=== PATIENT | female | born 1945 | race Caucasian/White ===

== ENCOUNTER 2016-05-23 09:32 | Inpatient (IN) | payer MEDICARE, OTHER ==
[2016-05-23] MEDS ORDERED: Sodium Chloride 0.9% 10 ML Syringe FLUSH PRN (09:45)
[2016-05-23] MEDS ORDERED: HYDROmorphone 0.5 MG/0.5 ML Syringe IVPUSH ONE ×2 (09:48→11:00)
[2016-05-23] MEDS: Sodium Chloride 0.9% 1,000 ML IV SCH ×2 (09:50→18:33)
--- NOTE | 2016-05-23 10:49 | EDM.PDOC ---
ED HPI Trauma - General Chief Complaint: Lower Extremity Injury/Pain Stated Complaint: [facility] Time Seen by Provider: 05/23/16 09:44 Source: Reports: Patient, EMS, Family History Limitations: Reports: Altered mental status - History of Present Illness INITIAL COMMENTS - FREE TEXT/NARRATIVE: The patient presents with right hip pain. She has a history of dementia and parkinsons. This morning she was in the bathroom and her heard her fall. He found her on her right side on the bathroom floor. She was complaining of pain to her right hip. He carried her back to their bed and called 911. She did not hit her head or hurt her neck. She is not on any blood thinners. She last ate about 8am. It was toast and half of a fabiola roll. Occurred When: just prior to arrival Occurred Where: home Method of Injury: fall Severity: severe Pain/Injury Location: Reports: lower extremity, right (Hip) Consciousness: Reports: no loss of consciousness Associated Symptoms: Reports: no other symptoms Allergies/ADRs: Allergies No Known Allergies Allergy (Verified 05/23/16 09:42) Home Medications: Ambulatory Orders LORazepam 0.5 mg PO QID PRN 02/22/14 [Confirmed 05/23/16] Benztropine [Cogentin] 0.5 mg PO ASDIRECTED 05/23/16 [Confirmed 05/23/16] Carbidopa/Levodopa [Sinemet 25-100 mg Tablet] 1 tab PO QID 05/23/16 [Confirmed 05/23/16] Levothyroxine [Synthroid] 50 mcg PO ACBREAKFAST 05/23/16 [Confirmed 05/23/16] Multivitamin [Multivitamins] 1 each PO DAILY 05/23/16 [Confirmed 05/23/16] rOPINIRole HCl [Requip] 0.25 mg PO BID 05/23/16 [Confirmed 05/23/16] Past Medical History - Past Health History Medical/Surgical History: Denies Medical/Surgical History HEENT History: Reports: Impaired vision Cardiovascular History: Reports: High cholesterol, Hypertension Neurological History: Reports: Parkinson's Psychiatric History: Reports: Dementia Endocrine/Metabolic History: Reports: Hypothyroidism - Past Surgical History Cardiovascular Surgical History: Reports: None Endocrine Surgical History: Reports: None Neurological Surgical History: Reports: None Social & Family History - Tobacco Use Smoking Status *Q: Never Smoker Years of Tobacco use: 5 Used Tobacco, but Quit: Yes Month Tobacco Last Used: numerous years ago Second Hand Smoke Exposure: No - Caffeine Use Caffeine Use: Reports: None - Alcohol Use Days Per Week of Alcohol Use: 0 - Recreational Drug Use Recreational Drug Use: No Review of Systems - Review of Systems Review Of Systems: See Below Constitutional: Reports: no symptoms Eyes: Reports: no symptoms Ears: Reports: no symptoms Nose: Reports: no symptoms Mouth/Throat: Reports: no symptoms Respiratory: Reports: no symptoms Cardiovascular: Reports: no symptoms GI/Abdominal: Reports: No symptoms Genitourinary: Reports: no symptoms Musculoskeletal: Reports: leg pain (Right hip pain) Trauma Exam - Physical Exam Exam: See Below Exam Limited By: Altered mental status (She is slightly confused) General Appearance: Reports: alert, no apparent distress Head: Reports: atraumatic, normocephalic Ears: Reports: normal external exam Nose: Reports: normal inspection Neck: Reports: non-tender, normal alignment, normal inspection Respiratory Exam: Reports: no respiratory distress, lungs clear, normal breath sounds Cardiovascular: Reports: regular rate, rhythm, no edema, no murmur GI/Abdominal: Reports: soft, non tender, no organomegaly Extremities: Reports: other (Moderate pain upon palpation to the right hip) Neurologic: Reports: no motor/sensory deficits, alert, other (Slightly confused) Course - Vital Signs Last Recorded V/S: Last Vital Signs Temp 98.7 F 05/23/16 09:37 Pulse 71 05/23/16 09:37 Resp 18 05/23/16 09:37 BP 134/106 H 05/23/16 09:37 Pulse Ox 100 05/23/16 09:37 - Orders/Labs/Meds Orders: Active Orders 24 hr Category Date Time Status Cardiac Monitoring [RC] . DIRECTED Care 05/23/16 09:45 Active EKG 12 Lead [EKG Documentation Completion] [RC] STAT Care 05/23/16 10:54 Active Peripheral IV Care [RC] . DIRECTED Care 05/23/16 09:45 Active CXR [Chest 1V Frontal] [CR] Stat Exams 05/23/16 10:55 Ordered Hip Min 2V or 3V Rt [CR] Stat Exams 05/23/16 09:44 Taken Pelvis 1V or 2V [CR] Stat Exams 05/23/16 10:56 Ordered UA W/MICROSCOPIC [URIN] Stat Lab 05/23/16 10:58 Received Sodium Chloride 0.9% [Normal Saline] 1,000 ml Med 05/23/16 09:45 Active IV ASDIRECTED Sodium Chloride 0.9% [Saline Flush] Med 05/23/16 09:45 Active 10 ml FLUSH ASDIRECTED PRN Peripheral IV Insertion Adult [OM.PC] Stat Oth 05/23/16 09:45 Ordered Medication Orders Sodium Chloride (Normal Saline) 1,000 mls @ 125 mls/hr IV ASDIRECTED LU Last Admin: 05/23/16 09:50 Dose: 125 mls/hr Sodium Chloride (Saline Flush) 10 ml FLUSH ASDIRECTED PRN PRN Reason: Keep Vein Open Last Admin: 05/23/16 09:52 Dose: 10 ml Labs: Laboratory Tests 05/23/16 05/23/16 Range/Units 10:26 10:26 WBC 5.62 (3.98-10.04) K/mm3 RBC 3.75 L (3.98-5.22) M/mm3 Hgb 11.6 (11.2-15.7) gm/L Hct 35.6 (34.1-44.9) % MCV 94.9 H (79.4-94.8) fl MCH 30.9 (25.6-32.2) pg MCHC 32.6 (32.2-35.5) g/dl RDW Std Deviation 48.9 H (36.4-46.3) fL Plt Count 228 (182-369) K/mm3 MPV 9.6 (9.4-12.3) fl Neut % (Auto) 70.6 (34.0-71.1) % Lymph % (Auto) 19.4 (19.3-51.7) % [place] % (Auto) 8.7 (4.7-12.5) % Eos % (Auto) 0.7 (0.7-5.8) Baso % (Auto) 0.4 (0.1-1.2) % Neut # 3.97 (1.56-6.13) K/mm3 Lymph # 1.09 L (1.18-3.74) K/mm3 [place] # 0.49 H (0.24-0.36) K/mm3 Eos # 0.04 (0.04-0.36) K/mm3 Baso # 0.02 (0.01-0.08) K/mm3 Sodium 141 (136-145) mEq/L Potassium 4.1 (3.5-5.1) mEq/L Chloride 105 (98-107) mEq/L Carbon Dioxide 27 (21-32) mEq/L Anion Gap 13.1 (5-15) BUN 44 H (7-18) mg/dL Creatinine 1.5 H (0.55-1.02) mg/dL Est Cr Clr Drug Dosing 21.36 mL/min Estimated GFR (MDRD) 34 (>60) mL/min BUN/Creatinine Ratio 29.3 H (14-18) Glucose 89 (83-115) mg/dL Calcium 9.1 (8.5-10.1) mg/dL Total Bilirubin 0.5 (0.2-1.0) mg/dL AST 16 (15-37) U/L ALT 9 L (14-59) U/L Alkaline Phosphatase 50 (46-116) U/L Troponin I < 0.017 (0.00-0.056) ng/mL Total Protein 7.0 (6.4-8.2) g/dl Albumin 3.8 (3.4-5.0) g/dl Globulin 3.2 gm/dL Albumin/Globulin Ratio 1.2 (1-2) Meds: Medications Generic Name Dose Route Start Last Admin Trade Name Freq PRN Reason Stop Dose Admin Sodium Chloride 1,000 mls @ 125 mls/hr 05/23/16 09:45 05/23/16 09:50 Normal Saline IV 125 mls/hr ASDIRECTED LU Administration Sodium Chloride 10 ml 05/23/16 09:45 05/23/16 09:52 Saline Flush FLUSH 10 ml ASDIRECTED PRN Administration Keep Vein Open Discontinued Medications Generic Name Dose Route Start Last Admin Trade Name Freq PRN Reason Stop Dose Admin Hydromorphone HCl 0.5 mg 05/23/16 09:48 05/23/16 09:51 Dilaudid IVPUSH 05/23/16 09:49 0.5 mg ONETIME ONE Administration Hydromorphone HCl 0.5 mg 05/23/16 11:00 05/23/16 11:04 Dilaudid IVPUSH 05/23/16 11:01 0.5 mg ONETIME ONE Administration - Re-Assessments/Exams Free Text/Narrative Re-Assessment/Exam: 05/23/16 11:14 I ordered an IV NS at 125mL/hr, dilaudid 0.5mg IV, labs and an x-ray of her hip. The x-ray shows an intertrochanteric fracture of the right hip. Her CBC looks good. Her creatinine was elevated at 1.5. Her troponin is negative. I called Dr Hong and he agreed to the admission with Dr Graham on consult. Departure - Departure Time of Disposition: 11:20 Disposition: Admitted As Inpatient 64 Condition: fair Clinical Impression: Intertrochanteric fracture, hip Fall Qualifiers: Encounter type: initial encounter Qualified Code(s): W19.XXXA - Unspecified fall, initial encounter Forms: ED Department Discharge - My Orders Last 24 Hours: My Active Orders 05/23/16 09:44 Hip Min 2V or 3V Rt [CR] Stat 05/23/16 09:45 Cardiac Monitoring [RC] . DIRECTED Peripheral IV Care [RC] . DIRECTED Sodium Chloride 0.9% [Normal Saline] 1,000 ml IV ASDIRECTED Sodium Chloride 0.9% [Saline Flush] 10 ml FLUSH ASDIRECTED PRN Peripheral IV Insertion Adult [OM.PC] Stat 05/23/16 10:54 EKG 12 Lead [EKG Documentation Completion] [RC] STAT 05/23/16 10:55 CXR [Chest 1V Frontal] [CR] Stat 05/23/16 10:56 Pelvis 1V or 2V [CR] Stat 05/23/16 10:58 UA W/MICROSCOPIC [URIN] Stat - Assessment/Plan Last 24 Hours: My Active Orders 05/23/16 09:44 Hip Min 2V or 3V Rt [CR] Stat 05/23/16 09:45 Cardiac Monitoring [RC] . DIRECTED Peripheral IV Care [RC] . DIRECTED Sodium Chloride 0.9% [Normal Saline] 1,000 ml IV ASDIRECTED Sodium Chloride 0.9% [Saline Flush] 10 ml FLUSH ASDIRECTED PRN Peripheral IV Insertion Adult [OM.PC] Stat 05/23/16 10:54 EKG 12 Lead [EKG Documentation Completion] [RC] STAT 05/23/16 10:55 CXR [Chest 1V Frontal] [CR] Stat 05/23/16 10:56 Pelvis 1V or 2V [CR] Stat 05/23/16 10:58 UA W/MICROSCOPIC [URIN] Stat
--- NOTE | 2016-05-23 12:19 | CR ---
Right hip: AP and lateral views of the right hip were obtained. Comparison: No previous hip exam. Fracture is identified within the basicervical or upper intertrochanteric region. Joint space within the right hip is maintained. Degenerative change is partially visualized within the lumbar spine. No other acute abnormality is seen. Impression: 1. Right hip fracture as described above. Other incidental findings. Diagnostic code #3
--- NOTE | 2016-05-23 13:27 | PCM.HP ---
H&P History of Present Illness - General Date of Service: 05/23/16 Admit Problem/Dx: Admission Diagnosis/Problem Admission Diagnosis/Problem Fall Source of Information: Patient, Family, Old records, Provider, RN notes reviewed History Limitations: Reports: Altered mental status (Dementia and Parkinson's Disease), Physical impairment - History of Present Illness Initial Comments - Free Text/Narative: This is a 70 yo elderly white female with past medical hx/o Impaired Vision, HTN , HLD, Parkinson's Disease, Dementia and Hypothyroidism who comes in with c/o right hip pain status fall this morning on her way to the bathroom. Patient was found by on her right side in the bathroom floor. Patient is not on any blood thinners. She report not head or neck pain. Initial work work in ED shows unremarkable CBC. Her chemistry is remarkable for BUN 44 and Cr. 1.5. Her troponin is <0.017. EKG shows Sinus Rhythm. UA was negative for UTI. Hip XR shows right inter-trochanteric fracture. Dr. Graham was consulted in ED for further evaluation. Patient will be admitted under the Hospitalist Team Services. She is DNR/DNI. Right Hip Pain Score (Numeric/FACES): 6 - Related Data Allergies/Adverse Reactions: Allergies Allergy/AdvReac Type Severity Reaction Status Date / Time No Known Allergies Allergy Verified 05/23/16 09:42 Home Medications: Home Meds LORazepam 0.5 mg PO QID PRN 02/22/14 [History] Benztropine [Cogentin] 0.5 mg PO ASDIRECTED 05/23/16 [History] Carbidopa/Levodopa [Sinemet 25-100 mg Tablet] 1 tab PO QID 05/23/16 [History] Levothyroxine [Synthroid] 50 mcg PO ACBREAKFAST 05/23/16 [History] Multivitamin [Multivitamins] 1 each PO DAILY 05/23/16 [History] rOPINIRole HCl [Requip] 0.25 mg PO BID 05/23/16 [History] Past Medical History - Past Health History Medical/Surgical History: Denies Medical/Surgical History HEENT History: Reports: Impaired vision Cardiovascular History: Reports: High cholesterol, Hypertension Neurological History: Reports: Parkinson's Psychiatric History: Reports: Dementia Endocrine/Metabolic History: Reports: Hypothyroidism - Past Surgical History Cardiovascular Surgical History: Reports: None Endocrine Surgical History: Reports: None Neurological Surgical History: Reports: None Social & Family History - Tobacco Use Smoking Status *Q: Never Smoker Years of Tobacco use: 5 Used Tobacco, but Quit: Yes Month Tobacco Last Used: numerous years ago Second Hand Smoke Exposure: No - Caffeine Use Caffeine Use: Reports: None - Alcohol Use Days Per Week of Alcohol Use: 0 - Recreational Drug Use Recreational Drug Use: No H&P Review of Systems - Review of Systems: Review Of Systems: See Below General: Denies: fever, chills HEENT: Reports: no symptoms Pulmonary: Denies: shortness of breath Cardiovascular: Denies: chest pain Gastrointestinal: Denies: Abdominal pain, Nausea, Vomiting Musculoskeletal: Reports: other (hip pain) Skin: Denies: bruising, pruritis Psychiatric: Reports: confusion Neurological: Reports: pre-existing deficit, difficulty walking, gait disturbance Hematologic/Lymphatic: Reports: no symptoms Immunologic: Reports: no symptoms Review of Systems Comment:: She is currently non-verbal. Exam - Exam Exam: See Below - Vital Signs Vital Signs: Last Vital Signs Temp 36.4 C 05/23/16 12:09 Pulse 83 05/23/16 12:09 Resp 20 05/23/16 12:09 BP 162/85 H 05/23/16 12:09 Pulse Ox 98 05/23/16 12:09 Weight: 39.916 kg - Exam General: alert. No: cooperative, mild distress HEENT: Conjunctiva clear, Posterior pharynx clear, PERRLA Neck: supple, trachea midline, 2+ carotid pulse wo bruit Lungs: Clear to auscultation, Normal respiratory effort Cardiovascular: regular rate, regular rhythm Abdomen: normal bowel sounds, soft. No: organomegaly (Female) Exam: Deferred Rectal (Female) Exam: Deferred Back Exam: normal inspection, decreased range of motion Extremities: normal inspection, normal pulses, other (Pain with palpation on right hip). No: clubbing, cyanosis, calf tenderness, edema Peripheral Pulses: 2+: dorsalis pedis (L), dorsalis pedis (R) Skin: warm, dry, intact Neuro Extensive - Mental Status: No: oriented x3, normal cognition, memory intact Psychiatric: alert, anxious Physical Exam Comments:: Physical exam is very limited. She is non-verbal and does not follow simple commands. She appears to be in pain. - Patient Data Result Diagrams: 05/23/16 10:26 05/23/16 10:26 EKG INTERPRETATION EKG Date: 05/23/16 Time: 18:00 Rhythm: other (Sinus Rhythm) Rate (beats/min): 83 [place]: RAD-right axis deviation NH/PQ Interval: Prolonged *Q Meaningful Use (ADM) - VTE *Q VTE Criteria *Q: - Stroke *Q Stroke Criteria *Q: - AMI *Q AMI Criteria *Q: Problem List Initiated/Reviewed/Updated: Yes Orders Last 24hrs: Active Orders 24 hr Category Date Time Status Notify Provider Consults [RC] ASDIRECTED Care 05/23/16 11:22 Active Consult to Physician [CONS] Stat Cons 05/23/16 11:20 Active METH-RESIST S.AUR,MRSA BY PCR [MOLEC] Routine Lab 05/23/16 13:20 Received HYDROmorphone [Dilaudid] Med 05/23/16 13:19 Active 0.25 mg IVPUSH Q4H PRN Resuscitation Status Routine Resus Stat 05/23/16 12:18 Ordered Medication Orders Hydromorphone HCl (Dilaudid) 0.25 mg IVPUSH Q4H PRN PRN Reason: Pain Sodium Chloride (Normal Saline) 1,000 mls @ 125 mls/hr IV ASDIRECTED LU Last Admin: 05/23/16 09:50 Dose: 125 mls/hr Sodium Chloride (Saline Flush) 10 ml FLUSH ASDIRECTED PRN PRN Reason: Keep Vein Open Last Admin: 05/23/16 09:52 Dose: 10 ml Assessment/Plan Comment:: Assessment/Plan: Acute: Right Inter-trochanteric Fracture - Status post - Risk factor: Unsteady gait and tremors from Parkinson's Disease and Impaired Vision - Dr. Graham in see to her and scheduled surgical correction - Pain Medications - NPO after midnight Status Post Fall - Patient was ambulatory on her own prior to fall - Non-complaint with assistive device - PT/OT eval after surgical correction - Rehab/SNF placement after d/c Renal Insufficiency - IV NS at 75 cc/hr Pre-Operative Risk Stratification - Risk factor: HTN, HLD and Dementia - METS> 4, SVS, EKG/CXR: benign - Physical exam limited but fairly benign - No recent cardiac or lung work up - No active cardiac or lung disease - Based on the data provided, the patient carries mild cardiac risk for intermediate surgical risk Chronic: Impaired Vision HTN HLD Parkinson's Disease Dementia Hypothyroidism Plan: Admit to Med-Surg Routine AM Lab Resume Home Medications PT/OT consult NPO after midnight Aspiration/Fall Precautions Protocol SW/CM for d/c planning Code status: DNR/DNI LOS anticipate > 96 hrs pending home placement
[2016-05-23] MEDS ORDERED: Acetaminophen 325 MG Tab PO PRN (13:30)
[2016-05-23] MEDS ORDERED: HYDROmorphone 1 MG/ML Syringe IVPUSH PRN (13:30)
[2016-05-23] MEDS ORDERED: Promethazine 12.5 MG in Sodium Chloride 0.9% 50 ML IV PRN (13:31)
[2016-05-23] MEDS ORDERED: LORazepam 2 MG/ML MDV IV PRN (13:31)
[2016-05-23] MEDS ORDERED: Albuterol 0.083% 2.5 MG/3 ML Neb Soln NEB PRN (13:31)
[2016-05-23] MEDS ORDERED: Polyethylene Glycol 3350 Powder 17 GM Packet PO PRN (13:31)
[2016-05-23] MEDS ORDERED: Bisacodyl 5 MG Tab PO PRN (13:31)
[2016-05-23] MEDS ORDERED: Ondansetron 4 MG/2 ML SDV IV PRN (13:31)
[2016-05-23] MEDS: HYDROmorphone 0.5 MG/0.5 ML Syringe IVPUSH PRN (13:42)
--- NOTE | 2016-05-23 13:50 | CR ---
Pelvis: AP view of the pelvis was obtained. Fracture again seen within the right hip. Joint spaces are preserved within both hips. Sacroiliac joints are unremarkable. Degenerative change seen within the lumbar spine. Bony structures are osteopenic. Impression: 1. Right hip fracture. 2. Other incidental findings. Diagnostic code #3
--- NOTE | 2016-05-23 13:50 | CR ---
Chest: Frontal view of the chest was obtained. Comparison: No previous chest x-ray. Heart size is normal. Tortuous thoracic aorta is seen. Lungs are clear with no acute infiltrates. Minimal scoliosis is present within the spine. Impression: 1. Incidental findings. Nothing acute is identified on frontal chest x-ray. Diagnostic code #1
[2016-05-23] MEDS: Carbidopa/Levodopa 25-100 MG Tab PO SCH ×2 (17:09→20:51)
[2016-05-23] MEDS: Acetaminophen/HYDROcodone 325-5 MG Tab PO PRN (17:09)
[2016-05-23] MEDS ORDERED: Sodium Chloride 0.9% 500 ML IV ONE (18:45)
[2016-05-23] MEDS: rOPINIRole 0.25 MG Tab PO SCH (20:51)
[2016-05-23] MEDS: LORazepam 0.5 MG Tab PO PRN (20:51)
[2016-05-23] MEDS ORDERED: Docusate Sodium 100 MG Cap PO PRN (21:00)
[2016-05-24] MEDS: LORazepam 0.5 MG Tab PO PRN ×3 (03:32→20:26)
[2016-05-24] MEDS: Acetaminophen/HYDROcodone 325-5 MG Tab PO PRN (03:47)
[2016-05-24] MEDS: Sodium Chloride 0.9% 1,000 ML IV SCH (03:47)
[2016-05-24] MEDS: Levothyroxine 50 MCG Tab PO SCH ×2 (05:40→12:32)
--- NOTE | 2016-05-24 07:17 | PCM.CONS ---
H&P History of Present Illness - General Date of Service: 05/23/16 Admit Problem/Dx: Admission Diagnosis/Problem Admission Diagnosis/Problem Fall Source of Information: Family, Provider History Limitations: Reports: Altered mental status - History of Present Illness Initial Comments - Free Text/Narative: This is a 70 year old female with parkinsons dementia that fell in the bathroom this morning. Her states that she would independently feed and dress herself and that she had never complained of right hip pain before the fall today. She has ambulatory assistive devices at home but rarely uses them per the . Today she was found down in the bathroom and unable to ambulate with right hip pain. Denies any other pain at this time. No loss of consciousness reported. Right Hip Pain Score (Numeric/FACES): 6 - Related Data Allergies/Adverse Reactions: Allergies Allergy/AdvReac Type Severity Reaction Status Date / Time No Known Allergies Allergy Verified 05/23/16 09:42 Home Medications: Home Meds LORazepam 0.5 mg PO QID PRN 02/22/14 [History] Benztropine [Cogentin] 0.5 mg PO ASDIRECTED 05/23/16 [History] Carbidopa/Levodopa [Sinemet 25-100 mg Tablet] 1 tab PO QID 05/23/16 [History] Levothyroxine [Synthroid] 50 mcg PO ACBREAKFAST 05/23/16 [History] Multivitamin [Multivitamins] 1 each PO DAILY 05/23/16 [History] rOPINIRole HCl [Requip] 0.25 mg PO BID 05/23/16 [History] Past Medical History - Past Health History Medical/Surgical History: Denies Medical/Surgical History HEENT History: Reports: Impaired vision Cardiovascular History: Reports: High cholesterol, Hypertension Neurological History: Reports: Parkinson's Psychiatric History: Reports: Dementia Endocrine/Metabolic History: Reports: Hypothyroidism - Past Surgical History Cardiovascular Surgical History: Reports: None Endocrine Surgical History: Reports: None Neurological Surgical History: Reports: None Social & Family History - Tobacco Use Smoking Status *Q: Never Smoker Years of Tobacco use: 5 Used Tobacco, but Quit: Yes Month Tobacco Last Used: numerous years ago Second Hand Smoke Exposure: No - Caffeine Use Caffeine Use: Reports: None - Alcohol Use Days Per Week of Alcohol Use: 0 - Recreational Drug Use Recreational Drug Use: No H&P Review of Systems - Review of Systems: Review Of Systems: ROS reveals no pertinent complaints other than HPI. Exam - Exam Exam: See Below - Vital Signs Vital Signs: Last Vital Signs Temp 37.1 C 05/24/16 04:46 Pulse 93 05/24/16 04:46 Resp 20 05/24/16 04:46 BP 146/88 H 05/24/16 05:01 Pulse Ox 100 05/24/16 04:46 Weight: 40.143 kg - Exam Physical Exam Comments:: Pelvis: stable RLE: shortened with pain with log roll, skin is intact to right hip, patient otherwise is moving all extremities and appears neurovascularly intact although exam is somewhat difficult and patient is being non-verbal at this time BUE: moving upper extremities with no signs of pain and without difficulty - Patient Data Lab Results last 24 hrs: Laboratory Results - last 24 hr 05/23/16 05/24/16 05/24/16 Range/Units 13:20 04:58 04:58 WBC 7.25 (3.98-10.04) K/mm3 RBC 3.42 L (3.98-5.22) M/mm3 Hgb 10.7 L (11.2-15.7) gm/L Hct 32.4 L (34.1-44.9) % MCV 94.7 (79.4-94.8) fl MCH 31.3 (25.6-32.2) pg MCHC 33.0 (32.2-35.5) g/dl RDW Std Deviation 47.9 H (36.4-46.3) fL Plt Count 184 (182-369) K/mm3 MPV 10.0 (9.4-12.3) fl Neut % (Auto) 74.2 H (34.0-71.1) % Lymph % (Auto) 13.4 L (19.3-51.7) % [place] % (Auto) 11.9 (4.7-12.5) % Eos % (Auto) 0.1 L (0.7-5.8) Baso % (Auto) 0.3 (0.1-1.2) % Neut # 5.38 (1.56-6.13) K/mm3 Lymph # 0.97 L (1.18-3.74) K/mm3 [place] # 0.86 H (0.24-0.36) K/mm3 Eos # 0.01 L (0.04-0.36) K/mm3 Baso # 0.02 (0.01-0.08) K/mm3 Sodium 142 (136-145) mEq/L Potassium 3.6 (3.5-5.1) mEq/L Chloride 107 (98-107) mEq/L Carbon Dioxide 25 (21-32) mEq/L Anion Gap 13.6 (5-15) BUN 33 H (7-18) mg/dL Creatinine 1.3 H (0.55-1.02) mg/dL Est Cr Clr Drug Dosing 24.79 mL/min Estimated GFR (MDRD) 40 (>60) mL/min BUN/Creatinine Ratio 25.4 H (14-18) Glucose 107 (83-115) mg/dL Calcium 8.9 (8.5-10.1) mg/dL Magnesium 1.8 (1.8-2.4) mg/dl MRSA (PCR) Negative Result Diagrams: 05/24/16 04:58 05/24/16 04:58 Consult PN Assessment/Plan Procedures: Procedures ASSAY OF TROPONIN QUANT (01/07/14) COMPLETE CBC W/AUTO DIFF WBC (03/19/15) COMPREHEN METABOLIC PANEL (03/19/15) CT ABD & PELVIS W/O CONTRAST (01/12/14) CT HEAD/BRAIN W/O DYE (03/19/15) CULTURE AEROBIC IDENTIFY (01/28/14) ELECTROCARDIOGRAM TRACING (03/19/15) EMERGENCY DEPT VISIT (03/19/15) EMERGENCY DEPT VISIT (03/25/14) EMERGENCY DEPT VISIT (01/25/14) FIBRIN DEGRADATION QUANT (02/23/14) HEPATOBIL SYST IMAGE W/DRUG (03/09/14) HYDRATION IV INFUSION INIT (03/19/15) INSERT TEMP BLADDER CATH (01/25/14) LACTATE (LD) (LDH) ENZYME (05/29/14) MICROBE SUSCEPTIBLE RAFAL (02/06/14) ROUTINE VENIPUNCTURE (03/19/15) THER/PROPH/DIAG INJ IV PUSH (03/25/14) URINALYSIS AUTO W/SCOPE (01/25/14) URINE BACTERIA CULTURE (02/06/14) US EXAM ABDO BACK WALL COMP (04/29/14) X-RAY EXAM OF ABDOMEN (02/10/14) X-RAY EXAM OF SHOULDER (03/25/14) Problem List Initiated/Reviewed/Updated: Yes Plan: A: Basicervical right hip fracture P: After reviewing the radiographs it shows the lesser and greater trochanter to be intact and to be a low femoral neck fracture. At this time I discussed with the family that an operation would need to be performed if we were to get her to ambulate quickly and lessen the risks of remaining in bed and to help alleviate her pain. I did discuss the short and terminal computer operator complications of a hip fracture in the elderly. We will plan on proceeding with a right hip endoprosthesis. Risks, benefits, complications, and alternatives were discussed.
--- NOTE | 2016-05-24 07:50 | PCM.PREANE ---
Preanesthetic Assessment - ANESTHESIA/TRANSFUSION/FAMILY HX Anesthesia/Transfusion History: Prior Anesthesia - REVIEW OF SYSTEMS Constitutional: Reports: no symptoms CAT SWAMPER: Reports: no symptoms Respiratory: Reports: no symptoms Cardiovascular: Reports: blood pressure problem GI: Reports: no symptoms Other: Reports: thyroid problems - PHYSICAL ASSESSMENT HR: 93 O2 Sat by Pulse Oximetry: 100 RR: 20 BP: 135/89 Temp: 98.8 F Vital Signs: Last Vital Signs Temp 98.8 F 05/24/16 04:46 Pulse 93 05/24/16 04:46 Resp 20 05/24/16 04:46 BP 146/88 H 05/24/16 05:01 Pulse Ox 100 05/24/16 04:46 Height: 5 ft Weight: 40.143 kg NPO Status Date: 05/23/16 NPO Status Time: 23:00 ASA Class: 3 Mental Status: other (dementia) Airway Class: Mallampati = 2 Dentition: Reports: normal dentition Thyro-Mental Finger Breadths: 3 Mouth Opening Finger Breadths: 3 Respiratory Status: lungs clear to auscultation bilaterally Cardiovascular Status: regular rate & rhythm, normal S1, S2, no murmur, blood pressure WNL - LAB Values: Laboratory Last Values WBC 7.25 K/mm3 (3.98-10.04) 05/24/16 04:58 RBC 3.42 M/mm3 (3.98-5.22) L 05/24/16 04:58 Hgb 10.7 gm/L (11.2-15.7) L 05/24/16 04:58 Hct 32.4 % (34.1-44.9) L 05/24/16 04:58 MCV 94.7 fl (79.4-94.8) 05/24/16 04:58 MCH 31.3 pg (25.6-32.2) 05/24/16 04:58 MCHC 33.0 g/dl (32.2-35.5) 05/24/16 04:58 RDW Std Deviation 47.9 fL (36.4-46.3) H 05/24/16 04:58 Plt Count 184 K/mm3 (182-369) 05/24/16 04:58 MPV 10.0 fl (9.4-12.3) 05/24/16 04:58 Neut % (Auto) 74.2 % (34.0-71.1) H 05/24/16 04:58 Lymph % (Auto) 13.4 % (19.3-51.7) L 05/24/16 04:58 [place] % (Auto) 11.9 % (4.7-12.5) 05/24/16 04:58 Eos % (Auto) 0.1 (0.7-5.8) L 05/24/16 04:58 Baso % (Auto) 0.3 % (0.1-1.2) 05/24/16 04:58 Neut # 5.38 K/mm3 (1.56-6.13) 05/24/16 04:58 Lymph # 0.97 K/mm3 (1.18-3.74) L 05/24/16 04:58 [place] # 0.86 K/mm3 (0.24-0.36) H 05/24/16 04:58 Eos # 0.01 K/mm3 (0.04-0.36) L 05/24/16 04:58 Baso # 0.02 K/mm3 (0.01-0.08) 05/24/16 04:58 Sodium 142 mEq/L (136-145) 05/24/16 04:58 Potassium 3.6 mEq/L (3.5-5.1) 05/24/16 04:58 Chloride 107 mEq/L (98-107) 05/24/16 04:58 Carbon Dioxide 25 mEq/L (21-32) 05/24/16 04:58 Anion Gap 13.6 (5-15) 05/24/16 04:58 BUN 33 mg/dL (7-18) H 05/24/16 04:58 Creatinine 1.3 mg/dL (0.55-1.02) H 05/24/16 04:58 Est Cr Clr Drug Dosing 24.79 mL/min 05/24/16 04:58 Estimated GFR (MDRD) 40 mL/min (>60) 05/24/16 04:58 BUN/Creatinine Ratio 25.4 (14-18) H 05/24/16 04:58 Glucose 107 mg/dL (83-115) 05/24/16 04:58 Calcium 8.9 mg/dL (8.5-10.1) 05/24/16 04:58 Magnesium 1.8 mg/dl (1.8-2.4) 05/24/16 04:58 Total Bilirubin 0.5 mg/dL (0.2-1.0) 05/23/16 10:26 AST 16 U/L (15-37) 05/23/16 10:26 ALT 9 U/L (14-59) L 05/23/16 10:26 Alkaline Phosphatase 50 U/L (46-116) 05/23/16 10:26 Troponin I < 0.017 ng/mL (0.00-0.056) 05/23/16 10:26 Total Protein 7.0 g/dl (6.4-8.2) 05/23/16 10:26 Albumin 3.8 g/dl (3.4-5.0) 05/23/16 10:26 Globulin 3.2 gm/dL 05/23/16 10:26 Albumin/Globulin Ratio 1.2 (1-2) 05/23/16 10:26 Urine Color Yellow (Yellow) 05/23/16 10:58 Urine Appearance Clear (Clear) 05/23/16 10:58 Urine pH 6.0 (5.0-8.0) 05/23/16 10:58 Ur Specific [place] 1.025 (1.005-1.030) 05/23/16 10:58 Urine Protein 1+ (Negative) H 05/23/16 10:58 Urine Glucose (UA) Negative (Negative) 05/23/16 10:58 Urine Ketones Negative (Negative) 05/23/16 10:58 Urine Occult Blood 1+ (Negative) H 05/23/16 10:58 Urine Nitrite Negative (Negative) 05/23/16 10:58 Urine Bilirubin Negative (Negative) 05/23/16 10:58 Urine Urobilinogen 0.2 (0.2-1.0) 05/23/16 10:58 Ur Leukocyte Esterase Negative (Negative) 05/23/16 10:58 Urine RBC 5-10 /hpf (0-5) H 05/23/16 10:58 Urine WBC 0-5 /hpf (0-5) 05/23/16 10:58 Ur Squamous Epith Cells 0-5 /hpf (0-5) 05/23/16 10:58 Urine Bacteria Few /hpf (FEW) 05/23/16 10:58 Urine Mucus Few /hpf (FEW) 05/23/16 10:58 MRSA (PCR) Negative 05/23/16 13:20 - ALLERGIES Allergies/Adverse Reactions: Allergies Allergy/AdvReac Type Severity Reaction Status Date / Time No Known Allergies Allergy Verified 05/23/16 09:42 - ANESTHESIA PLAN Preop Beta Ledy: No Anesthesia Type Planned: spinal - ACKNOWLEDGEMENTS Pt an appropriate candidate for the planned anesthesia: Yes Alternatives and risks of anesthesia discussed w pt/guardian: Yes Pt/Guardian understands and agree with anesthesia plan: Yes PreAnesthesia Questionnaire - Past Health History Medical/Surgical History: Denies Medical/Surgical History HEENT History: Reports: Impaired vision Cardiovascular History: Reports: High cholesterol, Hypertension Neurological History: Reports: Parkinson's Psychiatric History: Reports: Dementia Endocrine/Metabolic History: Reports: Hypothyroidism - Past Surgical History Cardiovascular Surgical History: Reports: None Endocrine Surgical History: Reports: None Neurological Surgical History: Reports: None - SUBSTANCE USE Smoking Status *Q: Never Smoker Tobacco Use Within Last Twelve Months: Cigarettes Second Hand Smoke Exposure: No Days Per Week of Alcohol Use: 0 Recreational Drug Use History: No - HOME MEDS Home Medications: Home Meds LORazepam 0.5 mg PO QID PRN 02/22/14 [History] Benztropine [Cogentin] 0.5 mg PO ASDIRECTED 05/23/16 [History] Carbidopa/Levodopa [Sinemet 25-100 mg Tablet] 1 tab PO QID 05/23/16 [History] Levothyroxine [Synthroid] 50 mcg PO ACBREAKFAST 05/23/16 [History] Multivitamin [Multivitamins] 1 each PO DAILY 05/23/16 [History] rOPINIRole HCl [Requip] 0.25 mg PO BID 05/23/16 [History] - CURRENT (IN HOUSE) MEDS Current Meds: Current Medications Acetaminophen (Tylenol) 650 mg PO Q4H PRN PRN Reason: Pain (Mild 1-3)/fever Acetaminophen/Hydrocodone Bitart ([place] 325-5 Mg) 1 tab PO Q4H PRN PRN Reason: Pain (moderate 4-6) Last Admin: 05/24/16 03:47 Dose: 1 tab Albuterol (Proventil Neb Soln) 2.5 mg NEB Q2H PRN PRN Reason: Shortness Of Breath/wheezing Benztropine Mesylate (Cogentin) 0.5 mg PO Q48H [facility] Bisacodyl (Dulcolax) 5 mg PO DAILY PRN PRN Reason: Constipation Carbidopa/Levodopa (Sinemet 25-100 Mg) 1 tab PO QID [facility] Last Admin: 05/23/16 20:51 Dose: 1 tab Docusate Sodium (Colace) 100 mg PO BID PRN PRN Reason: Constipation Hydromorphone HCl (Dilaudid) 0.25 mg IVPUSH Q4H PRN PRN Reason: Pain Last Admin: 05/23/16 13:42 Dose: 0.25 mg Sodium Chloride (Normal Saline) 1,000 mls @ 75 mls/hr IV ASDIRECTED [facility] Last Admin: 05/24/16 03:47 Dose: 75 mls/hr Promethazine HCl 12.5 mg/ (Sodium Chloride) 50.5 mls @ 100 mls/hr IV Q6H PRN PRN Reason: Nausea/Vomiting Levothyroxine Sodium (Synthroid) 50 mcg PO ACBREAKFAST [facility] Last Admin: 05/24/16 05:40 Dose: Not Given Lorazepam (Ativan) 0.5 mg PO QID PRN PRN Reason: anxiety/insomnia Last Admin: 05/24/16 03:32 Dose: 0.5 mg Multivitamins (Thera) 1 each PO DAILY [facility] Ondansetron HCl (Zofran) 4 mg IV Q6H PRN PRN Reason: Nausea/Vomiting Polyethylene Glycol (Miralax) 17 gm PO DAILY PRN PRN Reason: Constipation Ropinirole HCl (Requip) 0.25 mg PO BID [facility] Last Admin: 05/23/16 20:51 Dose: 0.25 mg Senna/Docusate Sodium (Senna Plus) 1 tab PO BID PRN PRN Reason: Constipation Sodium Chloride (Saline Flush) 10 ml FLUSH ASDIRECTED PRN PRN Reason: Keep Vein Open Last Admin: 05/23/16 09:52 Dose: 10 ml Discontinued Medications Hydromorphone HCl (Dilaudid) 0.5 mg IVPUSH ONETIME ONE Stop: 05/23/16 09:49 Last Admin: 05/23/16 09:51 Dose: 0.5 mg Hydromorphone HCl (Dilaudid) 0.5 mg IVPUSH ONETIME ONE Stop: 05/23/16 11:01 Last Admin: 05/23/16 11:04 Dose: 0.5 mg Hydromorphone HCl (Dilaudid) 0.25 mg IVPUSH Q4H PRN PRN Reason: Pain (severe 7-10) Stop: 05/27/16 23:59 Sodium Chloride (Normal Saline) 500 mls @ 999 mls/hr IV ONETIME ONE Stop: 05/23/16 19:15 Last Admin: 05/23/16 18:50 Dose: 999 mls/hr Lorazepam (Ativan) 0.5 mg IV Q6H PRN PRN Reason: Anxiety
[2016-05-24] MEDS ORDERED: ceFAZolin 1 GM Vial ONE ×2 (08:29)
[2016-05-24] MEDS ORDERED: Iodine/Sodium Iodide 2% Tincture 30 ML Bottle ONE (08:29)
[2016-05-24] MEDS ORDERED: fentaNYL 100 MCG/2 ML SDV ONE (08:31)
[2016-05-24] MEDS ORDERED: Propofol 200 MG/20 ML SDV ONE ×2 (08:31→10:11)
[2016-05-24] MEDS ORDERED: Lidocaine 1% 2 ML SDV ONE (08:32)
[2016-05-24] MEDS ORDERED: Morphine 8 MG, EPINEPHrine 0.3 MG, Cefuroxime 750 MG, Ketorolac 30 MG, Sodium Chloride ... ONE ×5 (08:43)
[2016-05-24] MEDS ORDERED: Famotidine 20 MG Tab PO SCH (08:45)
[2016-05-24] MEDS ORDERED: ePHEDrine/Normal Saline 25 MG/5 ML Syringe ONE (09:58)
--- NOTE | 2016-05-24 10:00 | CR ---
Right hip: Single AP view of the right hip was obtained. Comparison: Previous pelvis and hip study of 03/22/17. Fracture shown to represent intertrochanteric fracture. Alignment as seen on this one view study is anatomic. Joint space within the right hip is maintained. Osteopenia is seen. Impression: 1. Intertrochanteric fracture as noted above. Diagnostic code #3
[2016-05-24] MEDS: Bupivacaine 0.25% 30 ML SDV ONE ×2 (10:13→10:28)
[2016-05-24] MEDS ORDERED: Lactated Ringers 1,000 ML ONE (10:42)
--- NOTE | 2016-05-24 10:57 | PCM.POSTAN ---
POST ANESTHESIA ASSESSMENT - MENTAL STATUS Mental Status: alert - VITAL SIGNS Pulse Rate: 81 SaO2: 100 Resp Rate: 14 Blood Pressure: 109/70 Temperature: 36.8 C - RESPIRATORY Respiratory Status: respiratory rate WNL, airway patent, O2 saturation stable - CARDIOVASCULAR CV Status: pulse rate WNL, blood pressure stable - GASTROINTESTINAL GI Status: no symptoms - PAIN Pain Score: 0 - POST OP HYDRATION Hydration Status: adequate & stable - OBSERVATIONS Free Text/Narrative:: no anesthesia complications noted
[2016-05-24] MEDS ORDERED: Morphine 2 MG/ML Syringe IVPUSH PRN (11:00)
[2016-05-24] MEDS ORDERED: Naloxone 0.4 MG/ML SDV IVPUSH PRN (11:00)
[2016-05-24] MEDS: rOPINIRole 0.25 MG Tab PO SCH ×2 (12:31→20:26)
[2016-05-24] MEDS: Carbidopa/Levodopa 25-100 MG Tab PO SCH ×4 (12:31→20:25)
[2016-05-24] MEDS: Multivitamins,Therapeutic Tab PO SCH (12:32)
--- NOTE | 2016-05-24 14:16 | PCM.OPNOTE ---
- General Post-Op/Procedure Note Date of Surgery/Procedure: 05/24/16 Operative Procedure(s): cephallomedullary nailing of right hip intertrochanteric fracture Pre Op Diagnosis: right intertrochanteric hip fracture Post-Op Diagnosis: Same Anesthesia Technique: Local, MAC, Spinal Primary Surgeon: Esteban Graham Anesthesia Provider: Seth Cope Wire Roller: Yumiko Jamison EBL in mLs: 100 Complications: None Condition: Good Free Text/Narrative:: Intake & Output 05/23/16 05/24/16 05/24/16 22:59 06:59 14:59 Intake Total 709 1070 200 Output Total 150 800 130 Balance 559 270 70
--- NOTE | 2016-05-24 14:18 | PCM.PN ---
<Stephany Rankin M - Last Filed: 05/24/16 14:09> - General Info Date of Service: 05/24/16 Admission Dx/Problem (Free Text): Admission Diagnosis/Problem Admission Diagnosis/Problem Fall Patient is seen early this am; prior to ORIF of rt hip with Dr. Graham. She is confused but comfortable in appearance. Functional Status: Reports: pain controlled, urinating (prasad cath in place). Denies: ambulating - Review of Systems Pulmonary: Reports: no symptoms Cardiovascular: Reports: no symptoms Musculoskeletal: Reports: leg pain Neurological: Reports: confusion Psychiatric: Reports: confusion Systems Review Comment:: ROS difficult to obtain due to patient's mental status - Patient Data Vitals - most recent: Last Vital Signs Temp 99.7 F 05/24/16 13:00 Pulse 89 05/24/16 13:30 Resp 15 05/24/16 12:03 BP 144/71 H 05/24/16 13:30 Pulse Ox 98 05/24/16 13:30 Weight - most recent: 40.143 kg I&O - last 24 hours: Intake & Output 05/23/16 05/24/16 05/24/16 22:59 06:59 14:59 Intake Total 709 1070 200 Output Total 150 800 130 Balance 559 270 70 Lab Results last 24 hrs: Laboratory Results - last 24 hr 05/23/16 05/24/16 05/24/16 Range/Units 13:20 04:58 04:58 WBC 7.25 (3.98-10.04) K/mm3 RBC 3.42 L (3.98-5.22) M/mm3 Hgb 10.7 L (11.2-15.7) gm/L Hct 32.4 L (34.1-44.9) % MCV 94.7 (79.4-94.8) fl MCH 31.3 (25.6-32.2) pg MCHC 33.0 (32.2-35.5) g/dl RDW Std Deviation 47.9 H (36.4-46.3) fL Plt Count 184 (182-369) K/mm3 MPV 10.0 (9.4-12.3) fl Neut % (Auto) 74.2 H (34.0-71.1) % Lymph % (Auto) 13.4 L (19.3-51.7) % [place] % (Auto) 11.9 (4.7-12.5) % Eos % (Auto) 0.1 L (0.7-5.8) Baso % (Auto) 0.3 (0.1-1.2) % Neut # 5.38 (1.56-6.13) K/mm3 Lymph # 0.97 L (1.18-3.74) K/mm3 [place] # 0.86 H (0.24-0.36) K/mm3 Eos # 0.01 L (0.04-0.36) K/mm3 Baso # 0.02 (0.01-0.08) K/mm3 Sodium 142 (136-145) mEq/L Potassium 3.6 (3.5-5.1) mEq/L Chloride 107 (98-107) mEq/L Carbon Dioxide 25 (21-32) mEq/L Anion Gap 13.6 (5-15) BUN 33 H (7-18) mg/dL Creatinine 1.3 H (0.55-1.02) mg/dL Est Cr Clr Drug Dosing 24.79 mL/min Estimated GFR (MDRD) 40 (>60) mL/min BUN/Creatinine Ratio 25.4 H (14-18) Glucose 107 (83-115) mg/dL Calcium 8.9 (8.5-10.1) mg/dL Magnesium 1.8 (1.8-2.4) mg/dl MRSA (PCR) Negative Med Orders - Current: Current Medications Acetaminophen (Tylenol) 650 mg PO Q4H PRN PRN Reason: Pain (Mild 1-3)/fever Albuterol (Proventil Neb Soln) 2.5 mg NEB Q2H PRN PRN Reason: Shortness Of Breath/wheezing Benztropine Mesylate (Cogentin) 0.5 mg PO Q48H [facility] Bisacodyl (Dulcolax) 5 mg PO DAILY PRN PRN Reason: Constipation Carbidopa/Levodopa (Sinemet 25-100 Mg) 1 tab PO QID [facility] Last Admin: 05/24/16 12:32 Dose: 1 tab Enoxaparin Sodium (Lovenox) 30 mg SUBCUT Q12HR [facility] Famotidine (Pepcid) 20 mg PO DAILY [facility] Hydromorphone HCl (Dilaudid) 0.25 mg IVPUSH Q4H PRN PRN Reason: Pain Last Admin: 05/23/16 13:42 Dose: 0.25 mg Cefazolin Sodium/Dextrose 2 gm (/ Premix) 50 mls @ 100 mls/hr IV Q8H [facility] Stop: 05/25/16 08:59 Levothyroxine Sodium (Synthroid) 50 mcg PO ACBREAKFAST [facility] Last Admin: 05/24/16 12:32 Dose: 50 mcg Lorazepam (Ativan) 0.5 mg PO QID PRN PRN Reason: anxiety/insomnia Last Admin: 05/24/16 13:10 Dose: 0.5 mg Multivitamins (Thera) 1 each PO DAILY [facility] Last Admin: 05/24/16 12:32 Dose: Not Given Naloxone HCl (Narcan) 0.1 mg IVPUSH Q5M PRN PRN Reason: oversedation Stop: 05/25/16 11:01 Ondansetron HCl (Zofran) 4 mg IV Q6H PRN PRN Reason: Nausea/Vomiting Polyethylene Glycol (Miralax) 17 gm PO DAILY PRN PRN Reason: Constipation Ropinirole HCl (Requip) 0.25 mg PO BID [facility] Last Admin: 05/24/16 12:31 Dose: 0.25 mg Senna (Senna) 8.6 mg PO BID PRN PRN Reason: Constipation Senna/Docusate Sodium (Senna Plus) 1 tab PO BID PRN PRN Reason: Constipation Sodium Chloride (Saline Flush) 10 ml FLUSH ASDIRECTED PRN PRN Reason: Keep Vein Open Last Admin: 05/23/16 09:52 Dose: 10 ml Discontinued Medications Acetaminophen/Hydrocodone Bitart ([place] 325-5 Mg) 1 tab PO Q4H PRN PRN Reason: Pain (moderate 4-6) Last Admin: 05/24/16 03:47 Dose: 1 tab Bupivacaine HCl (Marcaine 0.25%) Confirm Administered Dose 30 ml .ROUTE .STK- MED ONE Stop: 05/24/16 08:30 Last Admin: 05/24/16 10:28 Dose: 20 ml Cefazolin Sodium (Ancef) Confirm Administered Dose 2 gm .ROUTE .STK-MED ONE Stop: 05/24/16 08:30 Cefazolin Sodium (Ancef) Confirm Administered Dose 1 gm .ROUTE .STK-MED ONE Stop: 05/24/16 08:30 Morphine Sulfate 8 mg/Epinephrine HCl 0.3 mg/Cefuroxime Sodium 750 mg/Ketorolac Tromethamine 30 mg/Sodium Chloride 27.9 ml 0 mg .XX ONETIME ONE Stop: 05/24/16 08:44 Docusate Sodium (Colace) 100 mg PO BID PRN PRN Reason: Constipation Ephedrine Sulfate (Ephedrine In Ns) Confirm Administered Dose 25 mg .ROUTE .STK- MED ONE Stop: 05/24/16 09:59 Famotidine (Pepcid) 20 mg PO Q12H [facility] Fentanyl (Sublimaze) Confirm Administered Dose 100 mcg .ROUTE .STK-MED ONE Stop: 05/24/16 08:32 Hydromorphone HCl (Dilaudid) 0.5 mg IVPUSH ONETIME ONE Stop: 05/23/16 09:49 Last Admin: 05/23/16 09:51 Dose: 0.5 mg Hydromorphone HCl (Dilaudid) 0.5 mg IVPUSH ONETIME ONE Stop: 05/23/16 11:01 Last Admin: 05/23/16 11:04 Dose: 0.5 mg Hydromorphone HCl (Dilaudid) 0.25 mg IVPUSH Q4H PRN PRN Reason: Pain (severe 7-10) Stop: 05/27/16 23:59 Sodium Chloride (Normal Saline) 1,000 mls @ 75 mls/hr IV ASDIRECTED [facility] Last Admin: 05/24/16 03:47 Dose: 75 mls/hr Promethazine HCl 12.5 mg/ (Sodium Chloride) 50.5 mls @ 100 mls/hr IV Q6H PRN PRN Reason: Nausea/Vomiting Sodium Chloride (Normal Saline) 500 mls @ 999 mls/hr IV ONETIME ONE Stop: 05/23/16 19:15 Last Admin: 05/23/16 18:50 Dose: 999 mls/hr Lactated Ringer's (Ringers, Lactated) Confirm Administered Dose 1,000 mls @ as directed .ROUTE .STK-MED ONE Stop: 05/24/16 10:43 Iodine (Iodine 2% Mild Tincture) Confirm Administered Dose 30 ml .ROUTE .STK- MED ONE Stop: 05/24/16 08:30 Lidocaine HCl (Lidocaine 1%) Confirm Administered Dose 4 ml .ROUTE .STK-MED ONE Stop: 05/24/16 08:33 Lorazepam (Ativan) 0.5 mg IV Q6H PRN PRN Reason: Anxiety Magnesium Hydroxide (Milk Of Magnesia) 30 ml PO BID PRN PRN Reason: Constipation Morphine Sulfate (Morphine) 1 mg IVPUSH Q2H PRN PRN Reason: Pain Propofol (Diprivan 20 Ml) Confirm Administered Dose 200 mg .ROUTE .STK-MED ONE Stop: 05/24/16 08:32 Propofol (Diprivan 20 Ml) Confirm Administered Dose 200 mg .ROUTE .STK-MED ONE Stop: 05/24/16 10:12 Tranexamic Acid (Cyklokapron) Confirm Administered Dose 1,000 mg .ROUTE .STK- MED ONE Stop: 05/24/16 08:30 - Exam General: alert, no acute distress HEENT: Pupils equal, EOMI Neck: supple Lungs: Normal respiratory effort, Decreased breath sounds (to bases) Cardiovascular: regular rate, regular rhythm Abdomen: bowel sounds present, soft, no tenderness, no distension, other (thin) (Female) Exam: Deferred Extremities: no edema, no calf tenderness Peripheral Pulses: 1+: dorsalis pedis (L), dorsalis pedis (R) Skin: warm, dry, intact Neurological: no new focal deficit Psy/Mental Status: alert, other (confused) - Problem List & Annotations (1) Intertrochanteric fracture, hip SNOMED Code(s): 347433534 Code(s): S72.143A - DISPLACED INTERTROCHANTERIC FRACTURE OF UNSP FEMUR, INIT Status: Acute Priority: High Current Visit: Yes (2) Fall SNOMED Code(s): 8551970, 360314119 Code(s): W19.XXXA - UNSPECIFIED FALL, INITIAL ENCOUNTER Status: Acute Priority: High Current Visit: Yes Qualifiers: Encounter type: initial encounter Qualified Code(s): W19.XXXA - Unspecified fall, initial encounter (3) Parkinsons disease SNOMED Code(s): 42046388 Code(s): G20 - PARKINSON'S DISEASE Status: Chronic Priority: Medium Current Visit: Yes (4) Dementia SNOMED Code(s): 54222499 Code(s): F03.90 - UNSPECIFIED DEMENTIA WITHOUT BEHAVIORAL DISTURBANCE Status: Chronic Priority: Medium Current Visit: Yes Qualifiers: Dementia type: Parkinson's disease (5) Failure to thrive syndrome, adult SNOMED Code(s): 807492494 Code(s): R62.7 - ADULT FAILURE TO THRIVE Status: Chronic Priority: Medium Current Visit: Yes Annotation/Comment:: Advanced/advancing Parkinsons , dementia, underweight, inability to care for self, dependent for most ADL's. - Problem List Review Problem List Initiated/Reviewed/Updated: Yes - Plan Plan:: Assessment/Plan: Acute: Right Inter-trochanteric Fracture - Status post fall at home - Risk factor: Unsteady gait and tremors from Parkinson's Disease and Impaired Vision, dementia - Dr. Graham/Ortho consult- ORIF later today - Pain Medications - NPO after midnight Status Post Fall - Patient was ambulatory on her own prior to fall - Non-complaint with assistive device, hx PD/dementia - PT/OT eval after surgical correction - Rehab/SNF placement after d/c Renal Insufficiency - IV NS at 75 cc/hr Dementia/Failure to Thrive: -Lives at home with and family that provide care for her -She is underweight, end stage and advancing PD and dementia; recommend SNF placement for discharge - Dietitian consult for underweight- protein supplementation recommendations -ST for cog eval/swallow eval tomorrow- postoperatively. Resolved: Pre-Operative Risk Stratification - Risk factor: HTN, HLD and Dementia - METS> 4, SVS, EKG/CXR: benign - Physical exam limited but fairly benign - No recent cardiac or lung work up - No active cardiac or lung disease - Based on the data provided, the patient carries mild cardiac risk for intermediate surgical risk Chronic: Impaired Vision HTN--stable HLD Parkinson's Disease- progressive Dementia--progressive Hypothyroidism-stable Plan: Admit to Med-Surg Routine AM Lab Resume Home Medications PT/OT consult NPO after midnight for surgery today; resume usual diet after surgery Aspiration/Fall Precautions Protocol SW/CM for d/c planning Code status: DNR/DNI LOS anticipate > 96 hrs pending SNF/NH placement <Belem Pandey - Last Filed: 05/24/16 16:18> - Patient Data Vitals - most recent: Last Vital Signs Temp 37.6 C 05/24/16 13:00 Pulse 89 05/24/16 13:30 Resp 15 05/24/16 12:03 BP 144/71 H 05/24/16 13:30 Pulse Ox 98 05/24/16 13:30 I&O - last 24 hours: Intake & Output 05/24/16 05/24/16 05/24/16 06:59 14:59 22:59 Intake Total 1070 200 110 Output Total 800 530 Balance 270 -330 110 Lab Results last 24 hrs: Laboratory Results - last 24 hr 05/24/16 05/24/16 Range/Units 04:58 04:58 WBC 7.25 (3.98-10.04) K/mm3 RBC 3.42 L (3.98-5.22) M/mm3 Hgb 10.7 L (11.2-15.7) gm/L Hct 32.4 L (34.1-44.9) % MCV 94.7 (79.4-94.8) fl MCH 31.3 (25.6-32.2) pg MCHC 33.0 (32.2-35.5) g/dl RDW Std Deviation 47.9 H (36.4-46.3) fL Plt Count 184 (182-369) K/mm3 MPV 10.0 (9.4-12.3) fl Neut % (Auto) 74.2 H (34.0-71.1) % Lymph % (Auto) 13.4 L (19.3-51.7) % [place] % (Auto) 11.9 (4.7-12.5) % Eos % (Auto) 0.1 L (0.7-5.8) Baso % (Auto) 0.3 (0.1-1.2) % Neut # 5.38 (1.56-6.13) K/mm3 Lymph # 0.97 L (1.18-3.74) K/mm3 [place] # 0.86 H (0.24-0.36) K/mm3 Eos # 0.01 L (0.04-0.36) K/mm3 Baso # 0.02 (0.01-0.08) K/mm3 Sodium 142 (136-145) mEq/L Potassium 3.6 (3.5-5.1) mEq/L Chloride 107 (98-107) mEq/L Carbon Dioxide 25 (21-32) mEq/L Anion Gap 13.6 (5-15) BUN 33 H (7-18) mg/dL Creatinine 1.3 H (0.55-1.02) mg/dL Est Cr Clr Drug Dosing 24.79 mL/min Estimated GFR (MDRD) 40 (>60) mL/min BUN/Creatinine Ratio 25.4 H (14-18) Glucose 107 (83-115) mg/dL Calcium 8.9 (8.5-10.1) mg/dL Magnesium 1.8 (1.8-2.4) mg/dl Med Orders - Current: Current Medications Acetaminophen (Tylenol) 650 mg PO Q4H PRN PRN Reason: Pain (Mild 1-3)/fever Albuterol (Proventil Neb Soln) 2.5 mg NEB Q2H PRN PRN Reason: Shortness Of Breath/wheezing Benztropine Mesylate (Cogentin) 0.5 mg PO Q48H [facility] Bisacodyl (Dulcolax) 5 mg PO DAILY PRN PRN Reason: Constipation Carbidopa/Levodopa (Sinemet 25-100 Mg) 1 tab PO QID [facility] Last Admin: 05/24/16 12:32 Dose: 1 tab Enoxaparin Sodium (Lovenox) 30 mg SUBCUT Q12HR [facility] Famotidine (Pepcid) 20 mg PO DAILY [facility] Hydromorphone HCl (Dilaudid) 0.25 mg IVPUSH Q4H PRN PRN Reason: Pain Last Admin: 05/24/16 14:53 Dose: 0.25 mg Cefazolin Sodium/Dextrose 2 gm (/ Premix) 50 mls @ 100 mls/hr IV Q8H [facility] Stop: 05/25/16 08:59 Levothyroxine Sodium (Synthroid) 50 mcg PO ACBREAKFAST [facility] Last Admin: 05/24/16 12:32 Dose: 50 mcg Lorazepam (Ativan) 0.5 mg PO QID PRN PRN Reason: anxiety/insomnia Last Admin: 05/24/16 13:10 Dose: 0.5 mg Multivitamins (Thera) 1 each PO DAILY [facility] Last Admin: 05/24/16 12:32 Dose: Not Given Naloxone HCl (Narcan) 0.1 mg IVPUSH Q5M PRN PRN Reason: oversedation Stop: 05/25/16 11:01 Ondansetron HCl (Zofran) 4 mg IV Q6H PRN PRN Reason: Nausea/Vomiting Polyethylene Glycol (Miralax) 17 gm PO DAILY PRN PRN Reason: Constipation Ropinirole HCl (Requip) 0.25 mg PO BID [facility] Last Admin: 05/24/16 12:31 Dose: 0.25 mg Senna (Senna) 8.6 mg PO BID PRN PRN Reason: Constipation Senna/Docusate Sodium (Senna Plus) 1 tab PO BID PRN PRN Reason: Constipation Sodium Chloride (Saline Flush) 10 ml FLUSH ASDIRECTED PRN PRN Reason: Keep Vein Open Last Admin: 05/23/16 09:52 Dose: 10 ml Discontinued Medications Acetaminophen/Hydrocodone Bitart ([place] 325-5 Mg) 1 tab PO Q4H PRN PRN Reason: Pain (moderate 4-6) Last Admin: 05/24/16 03:47 Dose: 1 tab Bupivacaine HCl (Marcaine 0.25%) Confirm Administered Dose 30 ml .ROUTE .STK- MED ONE Stop: 05/24/16 08:30 Last Admin: 05/24/16 10:28 Dose: 20 ml Cefazolin Sodium (Ancef) Confirm Administered Dose 2 gm .ROUTE .STK-MED ONE Stop: 05/24/16 08:30 Cefazolin Sodium (Ancef) Confirm Administered Dose 1 gm .ROUTE .STK-MED ONE Stop: 05/24/16 08:30 Morphine Sulfate 8 mg/Epinephrine HCl 0.3 mg/Cefuroxime Sodium 750 mg/Ketorolac Tromethamine 30 mg/Sodium Chloride 27.9 ml 0 mg .XX ONETIME ONE Stop: 05/24/16 08:44 Docusate Sodium (Colace) 100 mg PO BID PRN PRN Reason: Constipation Ephedrine Sulfate (Ephedrine In Ns) Confirm Administered Dose 25 mg .ROUTE .STK- MED ONE Stop: 05/24/16 09:59 Famotidine (Pepcid) 20 mg PO Q12H [facility] Fentanyl (Sublimaze) Confirm Administered Dose 100 mcg .ROUTE .STK-MED ONE Stop: 05/24/16 08:32 Hydromorphone HCl (Dilaudid) 0.5 mg IVPUSH ONETIME ONE Stop: 05/23/16 09:49 Last Admin: 05/23/16 09:51 Dose: 0.5 mg Hydromorphone HCl (Dilaudid) 0.5 mg IVPUSH ONETIME ONE Stop: 05/23/16 11:01 Last Admin: 05/23/16 11:04 Dose: 0.5 mg Hydromorphone HCl (Dilaudid) 0.25 mg IVPUSH Q4H PRN PRN Reason: Pain (severe 7-10) Stop: 05/27/16 23:59 Sodium Chloride (Normal Saline) 1,000 mls @ 75 mls/hr IV ASDIRECTED [facility] Last Admin: 05/24/16 03:47 Dose: 75 mls/hr Promethazine HCl 12.5 mg/ (Sodium Chloride) 50.5 mls @ 100 mls/hr IV Q6H PRN PRN Reason: Nausea/Vomiting Sodium Chloride (Normal Saline) 500 mls @ 999 mls/hr IV ONETIME ONE Stop: 05/23/16 19:15 Last Admin: 05/23/16 18:50 Dose: 999 mls/hr Lactated Ringer's (Ringers, Lactated) Confirm Administered Dose 1,000 mls @ as directed .ROUTE .STK-MED ONE Stop: 05/24/16 10:43 Iodine (Iodine 2% Mild Tincture) Confirm Administered Dose 30 ml .ROUTE .STK- MED ONE Stop: 05/24/16 08:30 Lidocaine HCl (Lidocaine 1%) Confirm Administered Dose 4 ml .ROUTE .STK-MED ONE Stop: 05/24/16 08:33 Lorazepam (Ativan) 0.5 mg IV Q6H PRN PRN Reason: Anxiety Magnesium Hydroxide (Milk Of Magnesia) 30 ml PO BID PRN PRN Reason: Constipation Morphine Sulfate (Morphine) 1 mg IVPUSH Q2H PRN PRN Reason: Pain Propofol (Diprivan 20 Ml) Confirm Administered Dose 200 mg .ROUTE .STK-MED ONE Stop: 05/24/16 08:32 Propofol (Diprivan 20 Ml) Confirm Administered Dose 200 mg .ROUTE .STK-MED ONE Stop: 05/24/16 10:12 Tranexamic Acid (Cyklokapron) Confirm Administered Dose 1,000 mg .ROUTE .STK- MED ONE Stop: 05/24/16 08:30 - Plan Plan:: Progressing slowly, DC soon as above.
[2016-05-24] MEDS: HYDROmorphone 0.5 MG/0.5 ML Syringe IVPUSH PRN (14:53)
--- NOTE | 2016-05-24 15:30 | CR ---
Pelvis and right hip: AP view of the pelvis was obtained as well as frog leg lateral view of the right hip. Comparison: Previous right hip study of 05/24/16. Short intramedullary art and compression screws affixes previous intertrochanteric fracture. Hip and compression screw lies within the femoral head. Skin elizabeth are present. Soft tissue air is noted from the surgical procedure. Other portions of the study are stable. Impression: 1. Orthopedic hardware affixes previous intertrochanteric fracture. 2. Other portions of the exam are stable from previous study. Diagnostic code #2 Agree with preliminary report issued by [facility], preliminary report dictated on 05/24/16, 3:00 PM Central Time)
[2016-05-24] MEDS: ceFAZolin 2 GM in Premix Bag 1 BAG IV SCH (17:46)
[2016-05-24] MEDS: Enoxaparin 30 MG/0.3 ML Syringe SUBCUT SCH (20:26)
[2016-05-24] MEDS ORDERED: Sennosides 8.6 MG Tab PO PRN (21:00)
[2016-05-24] MEDS ORDERED: Magnesium Hydroxide 400 MG/5 ML Susp 30 ML Cup PO PRN (21:00)
--- NOTE | 2016-05-24 21:13 | OR ---
DATE OF OPERATION: 05/24/2016 SURGEON: Esteban Graham MD OPERATION PERFORMED: Cephalomedullary nailing of right intertrochanteric hip fracture. PREOPERATIVE DIAGNOSIS: Right intertrochanteric hip fracture. POSTOPERATIVE DIAGNOSIS: Right intertrochanteric hip fracture. ANESTHESIA: Local MAC with spinal. ANESTHESIA PROVIDER: Seth Cope CRNA [employer] TENDER: Yumiko Jamison PA-C ESTIMATED BLOOD LOSS: 100 mL. COMPLICATIONS: None. CONDITION: Stable. IMPLANTS: [place] short Gamma nail with 90 mm cephalomedullary screw and a 30 mm distal interlock screw. DESCRIPTION OF PROCEDURE: The patient was identified in the preoperative holding area. Proper site was marked and identified by the surgeon. The patient was taken back to the operating theater where after adequate anesthesia, the patient had an AP pelvis with traction done showing the intertrochanteric hip fracture. At this time, the patient was placed on a traction table. The left lower extremity was placed in a boot and no traction was applied. It was placed in a dependent position. Right lower extremity was placed in boot and traction was applied to both gross traction and fine traction until that showed anatomic reduction on both AP and lateral views of the right intertrochanteric hip fracture. At this time, right hip was then sterilely prepped and draped in usual sterile fashion. OR time-out was performed. The patient received 2 g IV Ancef. At this time, an incision was made proximally at the greater trochanter. A guide pin was then placed in a center-center position. Opening reamer was then used. It was found that the patient had a tight canal, so a 12-mm reamer was then reamed down the canal to make sure that the cephalomedullary nail would fit the canal. At this time, it was then placed under fluoroscopy. The guide pin was then placed into the center part of the neck and head to make sure to be less than 25 mm pegs distances, measured 90 mm and 9 mm cephalomedullary screw was then placed. The set screw was then placed. Distal interlock at 30 mm was then placed bicortically. It was found to have adequate fixation in both AP and lateral views. Gross traction was then removed. Adequate saline was irrigated through the incisions. 0 Vicryl was used for the gluteal fascia. 2-0 Vicryl was used subcutaneously, elizabeth used for the skin. Sterile soft dressing was applied. MMODAL /[id number]
[2016-05-25] MEDS: ceFAZolin 2 GM in Premix Bag 1 BAG IV SCH ×2 (00:29→08:46)
[2016-05-25] MEDS: LORazepam 0.5 MG Tab PO PRN (04:30)
[2016-05-25] MEDS: Levothyroxine 50 MCG Tab PO SCH (06:31)
[2016-05-25] MEDS: Enoxaparin 30 MG/0.3 ML Syringe SUBCUT SCH ×2 (08:36→21:25)
[2016-05-25] MEDS: Carbidopa/Levodopa 25-100 MG Tab PO SCH ×4 (08:37→21:25)
[2016-05-25] MEDS: Multivitamins,Therapeutic Tab PO SCH (08:38)
[2016-05-25] MEDS: rOPINIRole 0.25 MG Tab PO SCH ×2 (08:38→21:25)
[2016-05-25] MEDS: Famotidine 20 MG Tab PO SCH (08:38)
[2016-05-25] MEDS: LORazepam 0.5 MG Tab PO SCH ×3 (08:40→21:25)
[2016-05-25] MEDS: Acetaminophen/HYDROcodone 325-5 MG Tab PO PRN ×2 (08:41→18:42)
[2016-05-25] MEDS ORDERED: Benztropine 1 MG Tab PO SCH (09:00)
--- NOTE | 2016-05-25 09:25 | PCM.PN ---
<Stephany Rankin M - Last Filed: 05/25/16 14:27> - General Info Date of Service: 05/25/16 Admission Dx/Problem (Free Text): Admission Diagnosis/Problem Admission Diagnosis/Problem Fall POD # 1 s/p ORIF rt femur fx with Dr. Graham. Resting well at time of my exam; family without concerns today; plan for DC to SNF/NH tomorrow. Functional Status: Reports: pain controlled, tolerating diet, urinating. Denies : ambulating, new symptoms - Review of Systems General: Reports: no symptoms HEENT: Reports: no symptoms Pulmonary: Reports: no symptoms Cardiovascular: Reports: no symptoms Gastrointestinal: Reports: No symptoms Genitourinary: Reports: no symptoms Musculoskeletal: Reports: leg pain Skin: Reports: no symptoms Neurological: Reports: confusion Psychiatric: Reports: confusion Systems Review Comment:: Difficult due to patients advanced dementia- resting comfortably - Patient Data Vitals - most recent: Last Vital Signs Temp 98.5 F 05/25/16 04:00 Pulse 87 05/25/16 04:00 Resp 18 05/25/16 04:00 BP 152/71 H 05/25/16 04:00 Pulse Ox 99 05/25/16 04:00 Weight - most recent: 40.052 kg I&O - last 24 hours: Intake & Output 05/24/16 05/25/16 05/25/16 22:59 06:59 14:59 Intake Total 450 350 Balance 450 350 Lab Results last 24 hrs: Laboratory Results - last 24 hr 05/25/16 05/25/16 Range/Units 05:32 05:32 WBC 8.26 (3.98-10.04) K/mm3 RBC 2.85 L (3.98-5.22) M/mm3 Hgb 9.0 L (11.2-15.7) gm/L Hct 27.2 L (34.1-44.9) % MCV 95.4 H (79.4-94.8) fl MCH 31.6 (25.6-32.2) pg MCHC 33.1 (32.2-35.5) g/dl RDW Std Deviation 47.9 H (36.4-46.3) fL Plt Count 140 L (182-369) K/mm3 MPV 9.8 (9.4-12.3) fl Neut % (Auto) 76.8 H (34.0-71.1) % Lymph % (Auto) 9.4 L (19.3-51.7) % [place] % (Auto) 13.6 H (4.7-12.5) % Eos % (Auto) 0 L (0.7-5.8) Baso % (Auto) 0.1 (0.1-1.2) % Neut # 6.34 H (1.56-6.13) K/mm3 Lymph # 0.78 L (1.18-3.74) K/mm3 [place] # 1.12 H (0.24-0.36) K/mm3 Eos # 0.00 L (0.04-0.36) K/mm3 Baso # 0.01 (0.01-0.08) K/mm3 Manual Slide Review Abnormal smear Sodium 141 (136-145) mEq/L Potassium 3.4 L (3.5-5.1) mEq/L Chloride 106 (98-107) mEq/L Carbon Dioxide 28 (21-32) mEq/L Anion Gap 10.4 (5-15) BUN 24 H (7-18) mg/dL Creatinine 1.2 H (0.55-1.02) mg/dL Est Cr Clr Drug Dosing 26.79 mL/min Estimated GFR (MDRD) 44 (>60) mL/min BUN/Creatinine Ratio 20.0 H (14-18) Glucose 126 H (83-115) mg/dL Calcium 8.3 L (8.5-10.1) mg/dL Magnesium 1.7 L (1.8-2.4) mg/dl Med Orders - Current: Current Medications Acetaminophen (Tylenol) 650 mg PO Q4H PRN PRN Reason: Pain (Mild 1-3)/fever Last Admin: 05/25/16 06:35 Dose: 650 mg Acetaminophen/Hydrocodone Bitart ([place] 325-5 Mg) 1 - 2 tab PO Q4H PRN PRN Reason: Pain Last Admin: 05/25/16 08:41 Dose: 2 tab Albuterol (Proventil Neb Soln) 2.5 mg NEB Q2H PRN PRN Reason: Shortness Of Breath/wheezing Benztropine Mesylate (Cogentin) 0.5 mg PO Q48H LU Last Admin: 05/25/16 08:46 Dose: 0.5 mg Bisacodyl (Dulcolax) 5 mg PO DAILY PRN PRN Reason: Constipation Carbidopa/Levodopa (Sinemet 25-100 Mg) 1 tab PO QID [facility] Last Admin: 05/25/16 08:37 Dose: 1 tab Enoxaparin Sodium (Lovenox) 30 mg SUBCUT Q12HR [facility] Last Admin: 05/25/16 08:36 Dose: 30 mg Famotidine (Pepcid) 20 mg PO DAILY [facility] Last Admin: 05/25/16 08:38 Dose: 20 mg Levothyroxine Sodium (Synthroid) 50 mcg PO ACBREAKFAST [facility] Last Admin: 05/25/16 06:31 Dose: 50 mcg Lorazepam (Ativan) 0.5 mg PO TID [facility] Last Admin: 05/25/16 08:40 Dose: 0.5 mg Magnesium Oxide (Magnesium Oxide) 400 mg PO BID [facility] Multivitamins (Thera) 1 each PO DAILY [facility] Last Admin: 05/25/16 08:38 Dose: 1 each Naloxone HCl (Narcan) 0.1 mg IVPUSH Q5M PRN PRN Reason: oversedation Stop: 05/25/16 11:01 Ondansetron HCl (Zofran) 4 mg IV Q6H PRN PRN Reason: Nausea/Vomiting Polyethylene Glycol (Miralax) 17 gm PO DAILY PRN PRN Reason: Constipation Potassium Chloride (Klor-Con M20) 20 meq PO BID [facility] Ropinirole HCl (Requip) 0.25 mg PO BID [facility] Last Admin: 05/25/16 08:38 Dose: 0.25 mg Senna (Senna) 8.6 mg PO BID PRN PRN Reason: Constipation Senna/Docusate Sodium (Senna Plus) 1 tab PO BID PRN PRN Reason: Constipation Sodium Chloride (Saline Flush) 10 ml FLUSH ASDIRECTED PRN PRN Reason: Keep Vein Open Last Admin: 05/23/16 09:52 Dose: 10 ml Discontinued Medications Acetaminophen/Hydrocodone Bitart ([place] 325-5 Mg) 1 tab PO Q4H PRN PRN Reason: Pain (moderate 4-6) Last Admin: 05/24/16 03:47 Dose: 1 tab Bupivacaine HCl (Marcaine 0.25%) Confirm Administered Dose 30 ml .ROUTE .STK- MED ONE Stop: 05/24/16 08:30 Last Admin: 05/24/16 10:28 Dose: 20 ml Cefazolin Sodium (Ancef) Confirm Administered Dose 2 gm .ROUTE .STK-MED ONE Stop: 05/24/16 08:30 Cefazolin Sodium (Ancef) Confirm Administered Dose 1 gm .ROUTE .STK-MED ONE Stop: 05/24/16 08:30 Morphine Sulfate 8 mg/Epinephrine HCl 0.3 mg/Cefuroxime Sodium 750 mg/Ketorolac Tromethamine 30 mg/Sodium Chloride 27.9 ml 0 mg .XX ONETIME ONE Stop: 05/24/16 08:44 Last Admin: 05/24/16 20:16 Dose: Not Given Docusate Sodium (Colace) 100 mg PO BID PRN PRN Reason: Constipation Ephedrine Sulfate (Ephedrine In Ns) Confirm Administered Dose 25 mg .ROUTE .STK- MED ONE Stop: 05/24/16 09:59 Famotidine (Pepcid) 20 mg PO Q12H [facility] Last Admin: 05/24/16 20:16 Dose: Not Given Fentanyl (Sublimaze) Confirm Administered Dose 100 mcg .ROUTE .STK-MED ONE Stop: 05/24/16 08:32 Hydromorphone HCl (Dilaudid) 0.5 mg IVPUSH ONETIME ONE Stop: 05/23/16 09:49 Last Admin: 05/23/16 09:51 Dose: 0.5 mg Hydromorphone HCl (Dilaudid) 0.5 mg IVPUSH ONETIME ONE Stop: 05/23/16 11:01 Last Admin: 05/23/16 11:04 Dose: 0.5 mg Hydromorphone HCl (Dilaudid) 0.25 mg IVPUSH Q4H PRN PRN Reason: Pain Last Admin: 05/24/16 14:53 Dose: 0.25 mg Hydromorphone HCl (Dilaudid) 0.25 mg IVPUSH Q4H PRN PRN Reason: Pain (severe 7-10) Stop: 05/27/16 23:59 Sodium Chloride (Normal Saline) 1,000 mls @ 75 mls/hr IV ASDIRECTED LU Last Admin: 05/24/16 03:47 Dose: 75 mls/hr Promethazine HCl 12.5 mg/ (Sodium Chloride) 50.5 mls @ 100 mls/hr IV Q6H PRN PRN Reason: Nausea/Vomiting Sodium Chloride (Normal Saline) 500 mls @ 999 mls/hr IV ONETIME ONE Stop: 05/23/16 19:15 Last Admin: 05/23/16 18:50 Dose: 999 mls/hr Cefazolin Sodium/Dextrose 2 gm (/ Premix) 50 mls @ 100 mls/hr IV Q8H LU Stop: 05/25/16 08:59 Last Admin: 05/25/16 08:46 Dose: 100 mls/hr Lactated Ringer's (Ringers, Lactated) Confirm Administered Dose 1,000 mls @ as directed .ROUTE .[employer]-MED ONE Stop: 05/24/16 10:43 Iodine (Iodine 2% Mild Tincture) Confirm Administered Dose 30 ml .ROUTE .[employer]- MED ONE Stop: 05/24/16 08:30 Lidocaine HCl (Lidocaine 1%) Confirm Administered Dose 4 ml .ROUTE .[employer]-MED ONE Stop: 05/24/16 08:33 Lorazepam (Ativan) 0.5 mg IV Q6H PRN PRN Reason: Anxiety Lorazepam (Ativan) 0.5 mg PO QID PRN PRN Reason: anxiety/insomnia Last Admin: 05/25/16 04:30 Dose: 0.5 mg Magnesium Hydroxide (Milk Of Magnesia) 30 ml PO BID PRN PRN Reason: Constipation Morphine Sulfate (Morphine) 1 mg IVPUSH Q2H PRN PRN Reason: Pain Propofol (Diprivan 20 Ml) Confirm Administered Dose 200 mg .ROUTE .STK-MED ONE Stop: 05/24/16 08:32 Propofol (Diprivan 20 Ml) Confirm Administered Dose 200 mg .ROUTE .[employer]-MED ONE Stop: 05/24/16 10:12 Tranexamic Acid (Cyklokapron) Confirm Administered Dose 1,000 mg .ROUTE .[employer]- MED ONE Stop: 05/24/16 08:30 - Exam Quality Assessment: DVT prophylaxis General: alert, no acute distress HEENT: Pupils equal, Pupils reactive, EOMI, Mucous membr. moist/pink Neck: supple Lungs: Clear to auscultation, Normal respiratory effort, Decreased breath sounds (to bases) Cardiovascular: regular rate, regular rhythm Abdomen: bowel sounds present, soft, no tenderness, no distension, other (thin) (Female) Exam: Deferred Extremities: no edema, no calf tenderness, other (teds and SCD's bilat) Peripheral Pulses: 1+: dorsalis pedis (L), dorsalis pedis (R) Skin: warm, dry, intact Neurological: no new focal deficit Psy/Mental Status: other (resting comfortably) - Problem List & Annotations (1) Intertrochanteric fracture, hip SNOMED Code(s): 930297190 Code(s): S72.143A - DISPLACED INTERTROCHANTERIC FRACTURE OF UNSP FEMUR, INIT Status: Acute Priority: High (2) Fall SNOMED Code(s): 2277584, 377806304 Code(s): W19.XXXA - UNSPECIFIED FALL, INITIAL ENCOUNTER Status: Acute Priority: High Qualifiers: Encounter type: initial encounter Qualified Code(s): W19.XXXA - Unspecified fall, initial encounter (3) Parkinsons disease SNOMED Code(s): 72202287 Code(s): G20 - PARKINSON'S DISEASE Status: Chronic Priority: Medium (4) Dementia SNOMED Code(s): 91693353 Code(s): F03.90 - UNSPECIFIED DEMENTIA WITHOUT BEHAVIORAL DISTURBANCE Status: Chronic Priority: Medium Qualifiers: Dementia type: Parkinson's disease (5) Failure to thrive syndrome, adult SNOMED Code(s): 672495010 Code(s): R62.7 - ADULT FAILURE TO THRIVE Status: Chronic Priority: High Annotation/Comment:: Advanced/advancing Parkinsons, dementia, underweight, inability to care for self, dependent for most ADL's. (6) Hypomagnesemia SNOMED Code(s): 707423017 Code(s): E83.42 - HYPOMAGNESEMIA Status: Acute Priority: High (7) Hypokalemia SNOMED Code(s): 57258283 Code(s): E87.6 - HYPOKALEMIA Status: Acute Priority: High - Problem List Review Problem List Initiated/Reviewed/Updated: Yes - My Orders Last 24 Hours: My Active Orders 05/24/16 14:18 Consult to [place] Inspector [CONS] Routine 05/25/16 06:27 Acetaminophen/HYDROcodone [[place] 325-5 MG] 1 - 2 tab PO Q4H PRN 05/25/16 09:00 LORazepam [Ativan] 0.5 mg PO TID 05/25/16 14:19 Consult to Speech Language Pathology [IT ADMINISTRATOR Evaluation and Treatment] [CONS] Routine 05/25/16 21:00 Magnesium Oxide 400 mg PO BID Potassium Chloride [Klor-Con M20] 20 meq PO BID - Plan Plan:: Assessment/Plan: Acute: Right Inter-trochanteric Fracture s/p ORIF with Dr. Graham: POD #1 - Status post fall at home - Risk factor: Unsteady gait and tremors from Parkinson's Disease and Impaired Vision, dementia - Pain Management and DVT prophylax per ortho/primary team - PT/OT - Likely SNF placement for rehab stay Status Post Fall - Patient was ambulatory on her own prior to fall - Non-complaint with assistive device, hx PD/dementia - PT/OT eval after surgical correction - Rehab/SNF placement after d/c Renal Insufficiency - IV NS at 75 cc/hr Hypokalemia/hypomagnesemia: - Replacement for deficiencies and follow am labs Dementia/Failure to Thrive: -Lives at home with and family that provide care for her -She is underweight, end stage and advancing PD and dementia; recommend SNF placement for discharge - Dietitian consult for underweight- protein supplementation recommendations -ST for cog eval/swallow eval tomorrow- postoperatively. Resolved: Pre-Operative Risk Stratification - Risk factor: HTN, HLD and Dementia - METS> 4, SVS, EKG/CXR: benign - Physical exam limited but fairly benign - No recent cardiac or lung work up - No active cardiac or lung disease - Based on the data provided, the patient carries mild cardiac risk for intermediate surgical risk Chronic: Impaired Vision HTN--stable HLD Parkinson's Disease- progressive Dementia--progressive Hypothyroidism-stable Plan: Admit to Med-Surg Routine AM Lab Resume Home Medications--ativan has been given TID-QID scheduled at home for anxiety; will continue that today. PT/OT consult Resume usual diet after surgery Aspiration/Fall Precautions Protocol SW/CM for d/c planning Code status: DNR/DNI LOS anticipate > 96 hrs pending SNF/NH placement <Belem Pandey - Last Filed: 05/30/16 16:01> - Patient Data Vitals - most recent: Last Vital Signs Temp 36.7 C 05/26/16 08:29 Pulse 88 05/26/16 08:29 Resp 15 05/26/16 08:29 BP 138/75 05/26/16 08:29 Pulse Ox 93 L 05/26/16 08:29 Med Orders - Current: Current Medications Discontinued Medications Acetaminophen (Tylenol) 650 mg PO Q4H PRN PRN Reason: Pain (Mild 1-3)/fever Last Admin: 05/25/16 06:35 Dose: 650 mg Acetaminophen/Hydrocodone Bitart ([place] 325-5 Mg) 1 tab PO Q4H PRN PRN Reason: Pain (moderate 4-6) Last Admin: 05/24/16 03:47 Dose: 1 tab Acetaminophen/Hydrocodone Bitart ([place] 325-5 Mg) 1 - 2 tab PO Q4H PRN PRN Reason: Pain Last Admin: 05/26/16 05:58 Dose: 2 tab Albuterol (Proventil Neb Soln) 2.5 mg NEB Q2H PRN PRN Reason: Shortness Of Breath/wheezing Benztropine Mesylate (Cogentin) 0.5 mg PO Q48H LU Last Admin: 05/25/16 08:46 Dose: 0.5 mg Bisacodyl (Dulcolax) 5 mg PO DAILY PRN PRN Reason: Constipation Last Admin: 05/25/16 18:43 Dose: 5 mg Bupivacaine HCl (Marcaine 0.25%) Confirm Administered Dose 30 ml .ROUTE .STK- MED ONE Stop: 05/24/16 08:30 Last Admin: 05/24/16 10:28 Dose: 20 ml Carbidopa/Levodopa (Sinemet 25-100 Mg) 1 tab PO QID [facility] Last Admin: 05/26/16 09:29 Dose: Not Given Cefazolin Sodium (Ancef) Confirm Administered Dose 2 gm .ROUTE .STK-MED ONE Stop: 05/24/16 08:30 Cefazolin Sodium (Ancef) Confirm Administered Dose 1 gm .ROUTE .STK-MED ONE Stop: 05/24/16 08:30 Morphine Sulfate 8 mg/Epinephrine HCl 0.3 mg/Cefuroxime Sodium 750 mg/Ketorolac Tromethamine 30 mg/Sodium Chloride 27.9 ml 0 mg .XX ONETIME ONE Stop: 05/24/16 08:44 Last Admin: 05/24/16 20:16 Dose: Not Given Docusate Sodium (Colace) 100 mg PO BID PRN PRN Reason: Constipation Enoxaparin Sodium (Lovenox) 30 mg SUBCUT Q12HR [facility] Last Admin: 05/26/16 09:29 Dose: Not Given Ephedrine Sulfate (Ephedrine In Ns) Confirm Administered Dose 25 mg .ROUTE .STK- MED ONE Stop: 05/24/16 09:59 Famotidine (Pepcid) 20 mg PO Q12H [facility] Last Admin: 05/24/16 20:16 Dose: Not Given Famotidine (Pepcid) 20 mg PO DAILY [facility] Last Admin: 05/26/16 09:29 Dose: Not Given Fentanyl (Sublimaze) Confirm Administered Dose 100 mcg .ROUTE .STK-MED ONE Stop: 05/24/16 08:32 Hydromorphone HCl (Dilaudid) 0.5 mg IVPUSH ONETIME ONE Stop: 05/23/16 09:49 Last Admin: 05/23/16 09:51 Dose: 0.5 mg Hydromorphone HCl (Dilaudid) 0.5 mg IVPUSH ONETIME ONE Stop: 05/23/16 11:01 Last Admin: 05/23/16 11:04 Dose: 0.5 mg Hydromorphone HCl (Dilaudid) 0.25 mg IVPUSH Q4H PRN PRN Reason: Pain Last Admin: 05/24/16 14:53 Dose: 0.25 mg Hydromorphone HCl (Dilaudid) 0.25 mg IVPUSH Q4H PRN PRN Reason: Pain (severe 7-10) Stop: 05/27/16 23:59 Sodium Chloride (Normal Saline) 1,000 mls @ 75 mls/hr IV ASDIRECTED [facility] Last Admin: 05/24/16 03:47 Dose: 75 mls/hr Promethazine HCl 12.5 mg/ (Sodium Chloride) 50.5 mls @ 100 mls/hr IV Q6H PRN PRN Reason: Nausea/Vomiting Sodium Chloride (Normal Saline) 500 mls @ 999 mls/hr IV ONETIME ONE Stop: 05/23/16 19:15 Last Admin: 05/23/16 18:50 Dose: 999 mls/hr Cefazolin Sodium/Dextrose 2 gm (/ Premix) 50 mls @ 100 mls/hr IV Q8H [facility] Stop: 05/25/16 08:59 Last Admin: 05/25/16 08:46 Dose: 100 mls/hr Lactated Ringer's (Ringers, Lactated) Confirm Administered Dose 1,000 mls @ as directed .ROUTE .STK-MED ONE Stop: 05/24/16 10:43 Iodine (Iodine 2% Mild Tincture) Confirm Administered Dose 30 ml .ROUTE .STK- MED ONE Stop: 05/24/16 08:30 Levothyroxine Sodium (Synthroid) 50 mcg PO ACBREAKFAST [facility] Last Admin: 05/26/16 05:58 Dose: 50 mcg Lidocaine HCl (Lidocaine 1%) Confirm Administered Dose 4 ml .ROUTE [employer]-MED ONE Stop: 05/24/16 08:33 Lorazepam (Ativan) 0.5 mg IV Q6H PRN PRN Reason: Anxiety Lorazepam (Ativan) 0.5 mg PO QID PRN PRN Reason: anxiety/insomnia Last Admin: 05/25/16 04:30 Dose: 0.5 mg Lorazepam (Ativan) 0.5 mg PO TID [facility] Last Admin: 05/26/16 09:29 Dose: Not Given Magnesium Hydroxide (Milk Of Magnesia) 30 ml PO BID PRN PRN Reason: Constipation Magnesium Oxide (Magnesium Oxide) 400 mg PO BID [facility] Last Admin: 05/26/16 09:29 Dose: Not Given Morphine Sulfate (Morphine) 1 mg IVPUSH Q2H PRN PRN Reason: Pain Multivitamins (Thera) 1 each PO DAILY [facility] Last Admin: 05/26/16 09:30 Dose: Not Given Naloxone HCl (Narcan) 0.1 mg IVPUSH Q5M PRN PRN Reason: oversedation Stop: 05/25/16 11:01 Ondansetron HCl (Zofran) 4 mg IV Q6H PRN PRN Reason: Nausea/Vomiting Polyethylene Glycol (Miralax) 17 gm PO DAILY PRN PRN Reason: Constipation Last Admin: 05/26/16 06:00 Dose: 17 gm Potassium Chloride (Klor-Con M20) 20 meq PO BID [facility] Last Admin: 05/26/16 09:29 Dose: Not Given Propofol (Diprivan 20 Ml) Confirm Administered Dose 200 mg .ROUTE .STK-MED ONE Stop: 05/24/16 08:32 Propofol (Diprivan 20 Ml) Confirm Administered Dose 200 mg .ROUTE .STK-MED ONE Stop: 05/24/16 10:12 Ropinirole HCl (Requip) 0.25 mg PO BID [facility] Last Admin: 05/26/16 09:29 Dose: Not Given Senna (Senna) 8.6 mg PO BID PRN PRN Reason: Constipation Last Admin: 05/25/16 18:44 Dose: 8.6 mg Senna/Docusate Sodium (Senna Plus) 1 tab PO BID PRN PRN Reason: Constipation Last Admin: 05/26/16 05:58 Dose: 1 tab Sodium Chloride (Saline Flush) 10 ml FLUSH ASDIRECTED PRN PRN Reason: Keep Vein Open Last Admin: 05/23/16 09:52 Dose: 10 ml Tranexamic Acid (Cyklokapron) Confirm Administered Dose 1,000 mg .ROUTE .ST- MED ONE Stop: 05/24/16 08:30 - Plan Plan:: See care plan above, DC pending placement.
--- NOTE | 2016-05-25 11:58 | CR ---
Right hip: Two views of the right hip were obtained. Study obtained utilizing C-arm device. Comparison: Previous right hip study of 05/24/16. Short intramedullary art and compression screw are seen. This affixes previous intertrochanteric fracture. Fluoroscopy time given as 58.9 seconds. Impression: 1. Operative study showing fixation of previous intertrochanteric fracture. Diagnostic code #2
--- NOTE | 2016-05-25 17:31 | PCM.SURGPN ---
- General Info Date of Service: 05/25/16 POD#: 1 Functional Status: Reports: pain controlled, ambulating - Review of Systems Musculoskeletal: Reports: other (The pt's son stated the pt ambulated with therapy today and seems to be progressing.) - Patient Data Vitals - most recent: Last Vital Signs Temp 99.0 F 05/25/16 15:53 Pulse 73 05/25/16 15:53 Resp 18 05/25/16 15:53 BP 102/59 L 05/25/16 15:53 Pulse Ox 97 05/25/16 15:53 Weight - most recent: 88 lb 4.8 oz I&O - last 24 hours: Intake & Output 05/25/16 05/25/16 05/25/16 06:59 14:59 22:59 Intake Total 350 30 230 Balance 350 30 230 Lab Results last 24 hrs: Laboratory Results - last 24 hr 05/25/16 05/25/16 Range/Units 05:32 05:32 WBC 8.26 (3.98-10.04) K/mm3 RBC 2.85 L (3.98-5.22) M/mm3 Hgb 9.0 L (11.2-15.7) gm/L Hct 27.2 L (34.1-44.9) % MCV 95.4 H (79.4-94.8) fl MCH 31.6 (25.6-32.2) pg MCHC 33.1 (32.2-35.5) g/dl RDW Std Deviation 47.9 H (36.4-46.3) fL Plt Count 140 L (182-369) K/mm3 MPV 9.8 (9.4-12.3) fl Neut % (Auto) 76.8 H (34.0-71.1) % Lymph % (Auto) 9.4 L (19.3-51.7) % [place] % (Auto) 13.6 H (4.7-12.5) % Eos % (Auto) 0 L (0.7-5.8) Baso % (Auto) 0.1 (0.1-1.2) % Neut # 6.34 H (1.56-6.13) K/mm3 Lymph # 0.78 L (1.18-3.74) K/mm3 [place] # 1.12 H (0.24-0.36) K/mm3 Eos # 0.00 L (0.04-0.36) K/mm3 Baso # 0.01 (0.01-0.08) K/mm3 Manual Slide Review Abnormal smear Sodium 141 (136-145) mEq/L Potassium 3.4 L (3.5-5.1) mEq/L Chloride 106 (98-107) mEq/L Carbon Dioxide 28 (21-32) mEq/L Anion Gap 10.4 (5-15) BUN 24 H (7-18) mg/dL Creatinine 1.2 H (0.55-1.02) mg/dL Est Cr Clr Drug Dosing 26.79 mL/min Estimated GFR (MDRD) 44 (>60) mL/min BUN/Creatinine Ratio 20.0 H (14-18) Glucose 126 H (83-115) mg/dL Calcium 8.3 L (8.5-10.1) mg/dL Magnesium 1.7 L (1.8-2.4) mg/dl Med Orders - Current: Current Medications Acetaminophen (Tylenol) 650 mg PO Q4H PRN PRN Reason: Pain (Mild 1-3)/fever Last Admin: 05/25/16 06:35 Dose: 650 mg Acetaminophen/Hydrocodone Bitart ([place] 325-5 Mg) 1 - 2 tab PO Q4H PRN PRN Reason: Pain Last Admin: 05/25/16 08:41 Dose: 2 tab Albuterol (Proventil Neb Soln) 2.5 mg NEB Q2H PRN PRN Reason: Shortness Of Breath/wheezing Benztropine Mesylate (Cogentin) 0.5 mg PO Q48H [facility] Last Admin: 05/25/16 08:46 Dose: 0.5 mg Bisacodyl (Dulcolax) 5 mg PO DAILY PRN PRN Reason: Constipation Carbidopa/Levodopa (Sinemet 25-100 Mg) 1 tab PO QID [facility] Last Admin: 05/25/16 14:37 Dose: 1 tab Enoxaparin Sodium (Lovenox) 30 mg SUBCUT Q12HR [facility] Last Admin: 05/25/16 08:36 Dose: 30 mg Famotidine (Pepcid) 20 mg PO DAILY [facility] Last Admin: 05/25/16 08:38 Dose: 20 mg Levothyroxine Sodium (Synthroid) 50 mcg PO ACBREAKFAST [facility] Last Admin: 05/25/16 06:31 Dose: 50 mcg Lorazepam (Ativan) 0.5 mg PO TID [facility] Last Admin: 05/25/16 14:37 Dose: 0.5 mg Magnesium Oxide (Magnesium Oxide) 400 mg PO BID [facility] Multivitamins (Thera) 1 each PO DAILY [facility] Last Admin: 05/25/16 08:38 Dose: 1 each Ondansetron HCl (Zofran) 4 mg IV Q6H PRN PRN Reason: Nausea/Vomiting Polyethylene Glycol (Miralax) 17 gm PO DAILY PRN PRN Reason: Constipation Potassium Chloride (Klor-Con M20) 20 meq PO BID [facility] Ropinirole HCl (Requip) 0.25 mg PO BID [facility] Last Admin: 05/25/16 08:38 Dose: 0.25 mg Senna (Senna) 8.6 mg PO BID PRN PRN Reason: Constipation Senna/Docusate Sodium (Senna Plus) 1 tab PO BID PRN PRN Reason: Constipation Sodium Chloride (Saline Flush) 10 ml FLUSH ASDIRECTED PRN PRN Reason: Keep Vein Open Last Admin: 05/23/16 09:52 Dose: 10 ml Discontinued Medications Acetaminophen/Hydrocodone Bitart ([place] 325-5 Mg) 1 tab PO Q4H PRN PRN Reason: Pain (moderate 4-6) Last Admin: 05/24/16 03:47 Dose: 1 tab Bupivacaine HCl (Marcaine 0.25%) Confirm Administered Dose 30 ml .ROUTE .STK- MED ONE Stop: 05/24/16 08:30 Last Admin: 05/24/16 10:28 Dose: 20 ml Cefazolin Sodium (Ancef) Confirm Administered Dose 2 gm .ROUTE .STK-MED ONE Stop: 05/24/16 08:30 Cefazolin Sodium (Ancef) Confirm Administered Dose 1 gm .ROUTE .STK-MED ONE Stop: 05/24/16 08:30 Morphine Sulfate 8 mg/Epinephrine HCl 0.3 mg/Cefuroxime Sodium 750 mg/Ketorolac Tromethamine 30 mg/Sodium Chloride 27.9 ml 0 mg .XX ONETIME ONE Stop: 05/24/16 08:44 Last Admin: 05/24/16 20:16 Dose: Not Given Docusate Sodium (Colace) 100 mg PO BID PRN PRN Reason: Constipation Ephedrine Sulfate (Ephedrine In Ns) Confirm Administered Dose 25 mg .ROUTE .STK- MED ONE Stop: 05/24/16 09:59 Famotidine (Pepcid) 20 mg PO Q12H [facility] Last Admin: 05/24/16 20:16 Dose: Not Given Fentanyl (Sublimaze) Confirm Administered Dose 100 mcg .ROUTE .STK-MED ONE Stop: 05/24/16 08:32 Hydromorphone HCl (Dilaudid) 0.5 mg IVPUSH ONETIME ONE Stop: 05/23/16 09:49 Last Admin: 05/23/16 09:51 Dose: 0.5 mg Hydromorphone HCl (Dilaudid) 0.5 mg IVPUSH ONETIME ONE Stop: 05/23/16 11:01 Last Admin: 05/23/16 11:04 Dose: 0.5 mg Hydromorphone HCl (Dilaudid) 0.25 mg IVPUSH Q4H PRN PRN Reason: Pain Last Admin: 05/24/16 14:53 Dose: 0.25 mg Hydromorphone HCl (Dilaudid) 0.25 mg IVPUSH Q4H PRN PRN Reason: Pain (severe 7-10) Stop: 05/27/16 23:59 Sodium Chloride (Normal Saline) 1,000 mls @ 75 mls/hr IV ASDIRECTED [facility] Last Admin: 05/24/16 03:47 Dose: 75 mls/hr Promethazine HCl 12.5 mg/ (Sodium Chloride) 50.5 mls @ 100 mls/hr IV Q6H PRN PRN Reason: Nausea/Vomiting Sodium Chloride (Normal Saline) 500 mls @ 999 mls/hr IV ONETIME ONE Stop: 05/23/16 19:15 Last Admin: 05/23/16 18:50 Dose: 999 mls/hr Cefazolin Sodium/Dextrose 2 gm (/ Premix) 50 mls @ 100 mls/hr IV Q8H [facility] Stop: 05/25/16 08:59 Last Admin: 05/25/16 08:46 Dose: 100 mls/hr Lactated Ringer's (Ringers, Lactated) Confirm Administered Dose 1,000 mls @ as directed .ROUTE .STK-MED ONE Stop: 05/24/16 10:43 Iodine (Iodine 2% Mild Tincture) Confirm Administered Dose 30 ml .ROUTE .STK- MED ONE Stop: 05/24/16 08:30 Lidocaine HCl (Lidocaine 1%) Confirm Administered Dose 4 ml .ROUTE .STK-MED ONE Stop: 05/24/16 08:33 Lorazepam (Ativan) 0.5 mg IV Q6H PRN PRN Reason: Anxiety Lorazepam (Ativan) 0.5 mg PO QID PRN PRN Reason: anxiety/insomnia Last Admin: 05/25/16 04:30 Dose: 0.5 mg Magnesium Hydroxide (Milk Of Magnesia) 30 ml PO BID PRN PRN Reason: Constipation Morphine Sulfate (Morphine) 1 mg IVPUSH Q2H PRN PRN Reason: Pain Naloxone HCl (Narcan) 0.1 mg IVPUSH Q5M PRN PRN Reason: oversedation Stop: 05/25/16 11:01 Propofol (Diprivan 20 Ml) Confirm Administered Dose 200 mg .ROUTE .STK-MED ONE Stop: 05/24/16 08:32 Propofol (Diprivan 20 Ml) Confirm Administered Dose 200 mg .ROUTE .STK-MED ONE Stop: 05/24/16 10:12 Tranexamic Acid (Cyklokapron) Confirm Administered Dose 1,000 mg .ROUTE .STK- MED ONE Stop: 05/24/16 08:30 - Exam Wound/Incisions: dressing dry and intact General: cooperative, no acute distress, other (Tired.) Lungs: Normal respiratory effort Extremities: normal pulses, no calf tenderness, other (Right thigh soft and nontender. Colby's negative.) - Problem List Review Problem List Initiated/Reviewed/Updated: Yes - My Orders Last 24 Hours: Active Orders 24 hr Category Date Time Status Notify Provider Consults [RC] ASDIRECTED Care 05/25/16 11:53 Active Consult to Physician [CONS] Routine Cons 05/25/16 11:52 Active Consult to Speech Language Pathology [RETAIL [employer]ICE [employer]OCIATE Evaluation Cons 05/25/16 14:19 Active and Treatment] [CONS] Routine Regular Diet [DIET] Diet 05/25/16 Lunch Active BASIC METABOLIC PANEL,BMP [CHEM] AM Lab 05/26/16 05:11 Ordered BASIC METABOLIC PANEL,BMP [CHEM] AM Lab 05/27/16 05:11 Ordered CBC W/O DIFF,HEMOGRAM [HEME] MOTH@0700 Lab 05/29/16 07:00 Ordered CBC W/O DIFF,HEMOGRAM [HEME] MOTH@0700 Lab 06/01/16 07:00 Ordered CBC W/O DIFF,HEMOGRAM [HEME] MOTH@0700 Lab 06/05/16 07:00 Ordered CBC W/O DIFF,HEMOGRAM [HEME] MOTH@0700 Lab 06/08/16 07:00 Ordered CBC W/O DIFF,HEMOGRAM [HEME] MOTH@0700 Lab 06/12/16 07:00 Ordered CBC WITH AUTO DIFF [HEME] AM Lab 05/26/16 05:11 Ordered CBC WITH AUTO DIFF [HEME] AM Lab 05/27/16 05:11 Ordered MAGNESIUM [CHEM] AM Lab 05/26/16 05:11 Ordered MAGNESIUM [CHEM] AM Lab 05/27/16 05:11 Ordered MAGNESIUM [CHEM] AM Lab 05/28/16 05:11 Ordered Acetaminophen/HYDROcodone [[place] 325-5 MG] Med 05/25/16 06:27 Active 1 - 2 tab PO Q4H PRN Benztropine [Cogentin] Med 05/25/16 09:00 Active 0.5 mg PO Q48H Enoxaparin [Lovenox] Med 05/24/16 21:00 Active 30 mg SUBCUT Q12HR Famotidine [Pepcid] Med 05/25/16 09:00 Active 20 mg PO DAILY LORazepam [Ativan] Med 05/25/16 09:00 Active 0.5 mg PO TID Magnesium Oxide Med 05/25/16 21:00 Active 400 mg PO BID Potassium Chloride [Klor-Con M20] Med 05/25/16 21:00 Active 20 meq PO BID Sennosides [Senna] Med 05/24/16 21:00 Active 8.6 mg PO BID PRN Medication Orders Acetaminophen (Tylenol) 650 mg PO Q4H PRN PRN Reason: Pain (Mild 1-3)/fever Last Admin: 05/25/16 06:35 Dose: 650 mg Acetaminophen/Hydrocodone Bitart ([place] 325-5 Mg) 1 - 2 tab PO Q4H PRN PRN Reason: Pain Last Admin: 05/25/16 08:41 Dose: 2 tab Albuterol (Proventil Neb Soln) 2.5 mg NEB Q2H PRN PRN Reason: Shortness Of Breath/wheezing Benztropine Mesylate (Cogentin) 0.5 mg PO Q48H [facility] Last Admin: 05/25/16 08:46 Dose: 0.5 mg Bisacodyl (Dulcolax) 5 mg PO DAILY PRN PRN Reason: Constipation Carbidopa/Levodopa (Sinemet 25-100 Mg) 1 tab PO QID [facility] Last Admin: 05/25/16 14:37 Dose: 1 tab Admin: 05/25/16 08:37 Dose: 1 tab Admin: 05/24/16 20:25 Dose: 1 tab Admin: 05/24/16 17:46 Dose: 1 tab Admin: 05/24/16 12:32 Dose: 1 tab Admin: 05/24/16 12:31 Dose: Admin: 05/23/16 20:51 Dose: 1 tab Admin: 05/23/16 17:09 Dose: 1 tab Enoxaparin Sodium (Lovenox) 30 mg SUBCUT Q12HR [facility] Last Admin: 05/25/16 08:36 Dose: 30 mg Admin: 05/24/16 20:26 Dose: 30 mg Famotidine (Pepcid) 20 mg PO DAILY [facility] Last Admin: 05/25/16 08:38 Dose: 20 mg Levothyroxine Sodium (Synthroid) 50 mcg PO ACBREAKFAST [facility] Last Admin: 05/25/16 06:31 Dose: 50 mcg Admin: 05/24/16 12:32 Dose: 50 mcg Admin: 05/24/16 05:40 Dose: Lorazepam (Ativan) 0.5 mg PO TID [facility] Last Admin: 05/25/16 14:37 Dose: 0.5 mg Admin: 05/25/16 08:40 Dose: 0.5 mg Magnesium Oxide (Magnesium Oxide) 400 mg PO BID [facility] Multivitamins (Thera) 1 each PO DAILY [facility] Last Admin: 05/25/16 08:38 Dose: 1 each Admin: 05/24/16 12:32 Dose: Ondansetron HCl (Zofran) 4 mg IV Q6H PRN PRN Reason: Nausea/Vomiting Polyethylene Glycol (Miralax) 17 gm PO DAILY PRN PRN Reason: Constipation Potassium Chloride (Klor-Con M20) 20 meq PO BID [facility] Ropinirole HCl (Requip) 0.25 mg PO BID [facility] Last Admin: 05/25/16 08:38 Dose: 0.25 mg Admin: 05/24/16 20:26 Dose: 0.25 mg Admin: 05/24/16 12:31 Dose: 0.25 mg Admin: 05/23/16 20:51 Dose: 0.25 mg Senna (Senna) 8.6 mg PO BID PRN PRN Reason: Constipation Senna/Docusate Sodium (Senna Plus) 1 tab PO BID PRN PRN Reason: Constipation Sodium Chloride (Saline Flush) 10 ml FLUSH ASDIRECTED PRN PRN Reason: Keep Vein Open Last Admin: 05/23/16 09:52 Dose: 10 ml - Assessment Assessment (Free Text/Narrative):: POD#1 - cephalomedullary rodding for right intertrochanteric hip fracture - Plan Plan (Free Text/Narrative):: 1. The pt was able to ambulate a short distance with therapy today. 2. WBAT 3. Lovenox BID for VTE prophylaxis. 4. Suspect discharge to [facility] tomorrow. The pt's case was discussed with Dr. Graham.
[2016-05-25] MEDS: Potassium Chloride 20 MEQ Tab.ER PO SCH (21:25)
[2016-05-25] MEDS: Magnesium Oxide 400 MG Tab PO SCH (21:25)
[2016-05-26] MEDS: Levothyroxine 50 MCG Tab PO SCH (05:58)
[2016-05-26] MEDS: Acetaminophen/HYDROcodone 325-5 MG Tab PO PRN (05:58)
[2016-05-26] MEDS: Carbidopa/Levodopa 25-100 MG Tab PO SCH ×2 (07:54→09:29)
[2016-05-26] MEDS: Potassium Chloride 20 MEQ Tab.ER PO SCH ×2 (07:55→09:29)
[2016-05-26] MEDS: Famotidine 20 MG Tab PO SCH ×2 (07:56→09:29)
[2016-05-26] MEDS: LORazepam 0.5 MG Tab PO SCH ×2 (07:56→09:29)
[2016-05-26] MEDS: rOPINIRole 0.25 MG Tab PO SCH ×2 (07:56→09:29)
[2016-05-26] MEDS: Enoxaparin 30 MG/0.3 ML Syringe SUBCUT SCH ×2 (07:57→09:29)
[2016-05-26] MEDS: Magnesium Oxide 400 MG Tab PO SCH ×2 (07:57→09:29)
[2016-05-26] MEDS: Multivitamins,Therapeutic Tab PO SCH ×2 (07:57→09:30)
[2016-05-26 08:32] VITALS: BP 138/75
--- NOTE | 2016-05-26 09:13 | PCM.DCSUM1 ---
<Stephany Rankin M - Last Filed: 05/26/16 12:42> Discharge Summary - Hospital Course Free Text/Narrative:: This is a 70 yo elderly white female with past medical hx/o Impaired Vision, HTN , HLD, Parkinson's Disease, Dementia and Hypothyroidism who comes in with c/o right hip pain status fall this morning on her way to the bathroom. Patient was found by on her right side in the bathroom floor. Patient is not on any blood thinners. She report not head or neck pain. Initial work work in ED shows unremarkable CBC. Her chemistry is remarkable for BUN 44 and Cr. 1.5. Her troponin is <0.017. EKG shows Sinus Rhythm. UA was negative for UTI. Hip XR shows right inter-trochanteric fracture. Dr. Graham was consulted in ED for further evaluation. Patient will be admitted under the Hospitalist Team Services. She is DNR/DNI. Patient was admitted, underwent ORIF of right hip fracture the following day with Dr. Graham. Postoperatively she did well. Hgb dropped to lowest of 9.0. She was ambulatory with assist with PT, doing well with that. She has moderate dementia and is essentially noncommunicative most of the time, this was unchanged from baseline. ST was consulted for swallow study which was with recommendations for regular diet, no straws. She will be discharged to [facility] today for rehab stay, PT/OT to continue. I discussed and reviewed case with her PCP, Dr. Cao today who also stopped by her room today. - Discharge Data Discharge Date: 05/26/16 (admit date 05/23/16) Discharge Disposition: DC/Tfer to SNF 03 Condition: Good - Discharge Diagnosis/Problem(s) (1) Intertrochanteric fracture, hip SNOMED Code(s): 942563818 ICD Code: S72.143A - DISPLACED INTERTROCHANTERIC FRACTURE OF UNSP FEMUR, INIT Status: Acute Priority: High (2) Fall SNOMED Code(s): 9608296, 136367670 ICD Code: W19.XXXA - UNSPECIFIED FALL, INITIAL ENCOUNTER Status: Acute Priority: High Qualifiers: Encounter type: initial encounter Qualified Code(s): W19.XXXA - Unspecified fall, initial encounter (3) Parkinsons disease SNOMED Code(s): 25300676 ICD Code: G20 - PARKINSON'S DISEASE Status: Chronic Priority: Medium (4) Dementia SNOMED Code(s): 00618261 ICD Code: F03.90 - UNSPECIFIED DEMENTIA WITHOUT BEHAVIORAL DISTURBANCE Status: Chronic Priority: Medium Qualifiers: Dementia type: Parkinson's disease (5) Failure to thrive syndrome, adult SNOMED Code(s): 757237858 ICD Code: R62.7 - ADULT FAILURE TO THRIVE Status: Chronic Priority: High Problem Details: Advanced/advancing Parkinsons, dementia, underweight, inability to care for self, dependent for most ADL's. (6) Hypomagnesemia SNOMED Code(s): 895612703 ICD Code: E83.42 - HYPOMAGNESEMIA Status: Acute Priority: High (7) Hypokalemia SNOMED Code(s): 54220375 ICD Code: E87.6 - HYPOKALEMIA Status: Acute Priority: High - Patient Summary/Data Operative Procedure(s) Performed: cephallomedullary nailing of right hip intertrochanteric fracture Complications: None Consults: Consultations 05/23/16 11:20 Consult to Physician [CONS] Stat 05/23/16 13:32 Consult to Case Management [CONS] Routine Consult to Electric Meter Installer Helper [CONS] Routine OT Evaluation and Treatment [CONS] Routine PT Evaluation and Treatment [CONS] Routine 05/24/16 14:18 Consult to Billing Supervisor [CONS] Routine 05/25/16 11:52 Consult to Physician [CONS] Routine 05/25/16 14:19 Consult to Speech Language Pathology [INSTALLER METAL FLOORING Evaluation and Treatment] [CONS] Routine Labs Pending at D/C: None Recommended Follow-up Testing/Procedures: Follow up with Orthopedics as directed Follow up with PCP, Dr. Cao within 5-7 days of discharge Planned Operative Procedure(s) after DC: None Hospital Course: As above - Patient Instructions Diet: Usual Diet as Tolerated (No straws) Activity: Apply Ice, As Tolerated, Elevate Extremity, Full Weight Bearing Driving: Do Not Drive Showering/Bathing: May Shower Showering/Bathing, Other: Keep the Aquacels in place with showering. Wound/Incision Care: Keep Operative Site/Wound Site Clean and Dry, Do NOT Change Dressing Notify Provider of: Fever, Increased Pain, Swelling and Redness, Drainage, Nausea and/or Vomiting Other/Special Instructions: Please get up and moving around every hour while awake. Please use your walker and have help as needed. Take the blood thinner medication - Lovenox - twice daily. You should participate in physical and occupational therapy. Use the pain medication as needed. The medication may cause drowsiness and constipation. Contact your primary care provider for instructions if you are constipated. You may use a stool softener like docusate sodium or Colace 100mg twice daily and/or a laxative like polyethylene glycol or Miralax daily for constipation. Use the ice machine often. Elevate the limb to decrease swelling. Keep the Aquacels in place until follow-up at the Clinic. Notify the Clinic if the Aquacels are saturated. Wear the ÁNGEL hose during the day and you may remove these at night. Schedule an appointment with your primary care provider for 'routine post-op care'. Call the Clinic with questions related to the hip - [phone]. For all other questions, contact your primary care provider. - Discharge Plan Prescriptions/Med Rec: Enoxaparin [Lovenox] 30 mg SUBCUT Q12HR #66 syringe Acetaminophen/HYDROcodone [Windsor 325-5 MG] 1 - 2 tab PO Q4H PRN #40 tablet PRN Reason: Pain LORazepam [Ativan] 0.5 mg PO TID #90 tablet Magnesium Oxide 400 mg PO BID #60 tablet Potassium Chloride [Klor-Con M20] 20 meq PO BID #60 tab.er Home Medications: Home Meds Benztropine [Cogentin] 0.5 mg PO ASDIRECTED 05/23/16 [History] Carbidopa/Levodopa [Sinemet 25-100 mg Tablet] 1 tab PO QID 05/23/16 [History] Levothyroxine [Synthroid] 50 mcg PO ACBREAKFAST 05/23/16 [History] Multivitamin [Multivitamins] 1 each PO DAILY 05/23/16 [History] rOPINIRole HCl [Requip] 0.25 mg PO BID 05/23/16 [History] Acetaminophen [Tylenol] 650 mg PO Q4H PRN #0 tablet 05/26/16 [Rx] Acetaminophen/HYDROcodone [Windsor 325-5 MG] 1 - 2 tab PO Q4H PRN #40 tablet 05/26 [Rx] Bisacodyl [Dulcolax] 5 mg PO DAILY PRN #0 tablet 05/26/16 [Rx] Docusate Sodium/Sennosides [Senna Plus] 1 tab PO BID PRN #0 tablet 05/26/16 [Rx] Enoxaparin [Lovenox] 30 mg SUBCUT Q12HR #66 syringe 05/26/16 [Rx] Famotidine [Pepcid] 20 mg PO DAILY tablet 05/26/16 [Rx] LORazepam [Ativan] 0.5 mg PO TID #90 tablet 05/26/16 [Rx] Magnesium Oxide 400 mg PO BID #60 tablet 05/26/16 [Rx] Polyethylene Glycol 3350 [MiraLAX] 17 gm PO DAILY PRN #0 packet 05/26/16 [Rx] Potassium Chloride [Klor-Con M20] 20 meq PO BID #60 tab.er 05/26/16 [Rx] Sennosides [Senna] 8.6 mg PO BID PRN #0 tablet 05/26/16 [Rx] Patient Handouts: Hypomagnesemia, Hypokalemia, Hip Fracture, Open Reduction and Internal Fixation for Hip Fracture Forms: ED Department Discharge Referrals: Yumiko Jamison PA-C [Physician Film Mounter] - (Please see Yumiko Jamison at [facility] on Sunday at 2:15 PM on 05/31/16.) Dwight Bush MD [Primary Care Provider] - - Discharge Summary/Plan Comment DC Time >30 min.: Yes (40 min) - General Info Date of Service: 05/26/16 Functional Status: Reports: pain controlled, tolerating diet, urinating. Denies : new symptoms - Review of Systems General: Reports: no symptoms Pulmonary: Reports: no symptoms Cardiovascular: Reports: no symptoms Gastrointestinal: Reports: Constipation Musculoskeletal: Reports: leg pain Neurological: Reports: confusion Psychiatric: Reports: confusion (baseline) Systems Review Comment: ROS difficult to obtain due to patients baseline dementia - Patient Data Vitals - Most Recent: Last Vital Signs Temp 98.1 F 05/26/16 08:29 Pulse 88 05/26/16 08:29 Resp 15 05/26/16 08:29 BP 138/75 05/26/16 08:29 Pulse Ox 93 L 05/26/16 08:29 Weight - Most Recent: 39.825 kg I&O - Last 24 hours: Intake & Output 05/25/16 05/26/16 05/26/16 22:59 06:59 14:59 Intake Total 705 200 Balance 705 200 Lab Results - Last 24 hrs: Laboratory Results - last 24 hr 05/26/16 05/26/16 Range/Units 05:30 05:30 WBC 8.13 (3.98-10.04) K/mm3 RBC 2.91 L (3.98-5.22) M/mm3 Hgb 9.0 L (11.2-15.7) gm/L Hct 27.8 L (34.1-44.9) % MCV 95.5 H (79.4-94.8) fl MCH 30.9 (25.6-32.2) pg MCHC 32.4 (32.2-35.5) g/dl RDW Std Deviation 48.4 H (36.4-46.3) fL Plt Count 157 L (182-369) K/mm3 MPV 10.1 (9.4-12.3) fl Neut % (Auto) 76.1 H (34.0-71.1) % Lymph % (Auto) 12.1 L (19.3-51.7) % Robertson % (Auto) 11.1 (4.7-12.5) % Eos % (Auto) 0.4 L (0.7-5.8) Baso % (Auto) 0.2 (0.1-1.2) % Neut # 6.19 H (1.56-6.13) K/mm3 Lymph # 0.98 L (1.18-3.74) K/mm3 Robertson # 0.90 H (0.24-0.36) K/mm3 Eos # 0.03 L (0.04-0.36) K/mm3 Baso # 0.02 (0.01-0.08) K/mm3 Sodium 141 (136-145) mEq/L Potassium 4.0 (3.5-5.1) mEq/L Chloride 106 (98-107) mEq/L Carbon Dioxide 25 (21-32) mEq/L Anion Gap 14.0 (5-15) BUN 24 H (7-18) mg/dL Creatinine 1.2 H (0.55-1.02) mg/dL Est Cr Clr Drug Dosing 26.64 mL/min Estimated GFR (MDRD) 44 (>60) mL/min BUN/Creatinine Ratio 20.0 H (14-18) Glucose 114 (83-115) mg/dL Calcium 8.8 (8.5-10.1) mg/dL Magnesium 2.0 (1.8-2.4) mg/dl Med Orders - Current: Current Medications Acetaminophen (Tylenol) 650 mg PO Q4H PRN PRN Reason: Pain (Mild 1-3)/fever Last Admin: 05/25/16 06:35 Dose: 650 mg Acetaminophen/Hydrocodone Bitart (Windsor 325-5 Mg) 1 - 2 tab PO Q4H PRN PRN Reason: Pain Last Admin: 05/26/16 05:58 Dose: 2 tab Albuterol (Proventil Neb Soln) 2.5 mg NEB Q2H PRN PRN Reason: Shortness Of Breath/wheezing Benztropine Mesylate (Cogentin) 0.5 mg PO Q48H [facility] Last Admin: 05/25/16 08:46 Dose: 0.5 mg Bisacodyl (Dulcolax) 5 mg PO DAILY PRN PRN Reason: Constipation Last Admin: 05/25/16 18:43 Dose: 5 mg Carbidopa/Levodopa (Sinemet 25-100 Mg) 1 tab PO QID [facility] Last Admin: 05/26/16 07:54 Dose: 1 tab Enoxaparin Sodium (Lovenox) 30 mg SUBCUT Q12HR [facility] Last Admin: 05/26/16 07:57 Dose: 30 mg Famotidine (Pepcid) 20 mg PO DAILY [facility] Last Admin: 05/26/16 07:56 Dose: 20 mg Levothyroxine Sodium (Synthroid) 50 mcg PO ACBREAKFAST [facility] Last Admin: 05/26/16 05:58 Dose: 50 mcg Lorazepam (Ativan) 0.5 mg PO TID [facility] Last Admin: 05/26/16 07:56 Dose: 0.5 mg Magnesium Oxide (Magnesium Oxide) 400 mg PO BID [facility] Last Admin: 05/26/16 07:57 Dose: 400 mg Multivitamins (Thera) 1 each PO DAILY [facility] Last Admin: 05/26/16 07:57 Dose: 1 each Ondansetron HCl (Zofran) 4 mg IV Q6H PRN PRN Reason: Nausea/Vomiting Polyethylene Glycol (Miralax) 17 gm PO DAILY PRN PRN Reason: Constipation Last Admin: 05/26/16 06:00 Dose: 17 gm Potassium Chloride (Klor-Con M20) 20 meq PO BID [facility] Last Admin: 05/26/16 07:55 Dose: 20 meq Ropinirole HCl (Requip) 0.25 mg PO BID [facility] Last Admin: 05/26/16 07:56 Dose: 0.25 mg Senna (Senna) 8.6 mg PO BID PRN PRN Reason: Constipation Last Admin: 05/25/16 18:44 Dose: 8.6 mg Senna/Docusate Sodium (Senna Plus) 1 tab PO BID PRN PRN Reason: Constipation Last Admin: 05/26/16 05:58 Dose: 1 tab Sodium Chloride (Saline Flush) 10 ml FLUSH ASDIRECTED PRN PRN Reason: Keep Vein Open Last Admin: 05/23/16 09:52 Dose: 10 ml Discontinued Medications Acetaminophen/Hydrocodone Bitart (Windsor 325-5 Mg) 1 tab PO Q4H PRN PRN Reason: Pain (moderate 4-6) Last Admin: 05/24/16 03:47 Dose: 1 tab Bupivacaine HCl (Marcaine 0.25%) Confirm Administered Dose 30 ml .ROUTE .STK- MED ONE Stop: 05/24/16 08:30 Last Admin: 05/24/16 10:28 Dose: 20 ml Cefazolin Sodium (Ancef) Confirm Administered Dose 2 gm .ROUTE .STK-MED ONE Stop: 05/24/16 08:30 Cefazolin Sodium (Ancef) Confirm Administered Dose 1 gm .ROUTE .STK-MED ONE Stop: 05/24/16 08:30 Morphine Sulfate 8 mg/Epinephrine HCl 0.3 mg/Cefuroxime Sodium 750 mg/Ketorolac Tromethamine 30 mg/Sodium Chloride 27.9 ml 0 mg .XX ONETIME ONE Stop: 05/24/16 08:44 Last Admin: 05/24/16 20:16 Dose: Not Given Docusate Sodium (Colace) 100 mg PO BID PRN PRN Reason: Constipation Ephedrine Sulfate (Ephedrine In Ns) Confirm Administered Dose 25 mg .ROUTE .STK- MED ONE Stop: 05/24/16 09:59 Famotidine (Pepcid) 20 mg PO Q12H [facility] Last Admin: 05/24/16 20:16 Dose: Not Given Fentanyl (Sublimaze) Confirm Administered Dose 100 mcg .ROUTE .STK-MED ONE Stop: 05/24/16 08:32 Hydromorphone HCl (Dilaudid) 0.5 mg IVPUSH ONETIME ONE Stop: 05/23/16 09:49 Last Admin: 05/23/16 09:51 Dose: 0.5 mg Hydromorphone HCl (Dilaudid) 0.5 mg IVPUSH ONETIME ONE Stop: 05/23/16 11:01 Last Admin: 05/23/16 11:04 Dose: 0.5 mg Hydromorphone HCl (Dilaudid) 0.25 mg IVPUSH Q4H PRN PRN Reason: Pain Last Admin: 05/24/16 14:53 Dose: 0.25 mg Hydromorphone HCl (Dilaudid) 0.25 mg IVPUSH Q4H PRN PRN Reason: Pain (severe 7-10) Stop: 05/27/16 23:59 Sodium Chloride (Normal Saline) 1,000 mls @ 75 mls/hr IV ASDIRECTED [facility] Last Admin: 05/24/16 03:47 Dose: 75 mls/hr Promethazine HCl 12.5 mg/ (Sodium Chloride) 50.5 mls @ 100 mls/hr IV Q6H PRN PRN Reason: Nausea/Vomiting Sodium Chloride (Normal Saline) 500 mls @ 999 mls/hr IV ONETIME ONE Stop: 05/23/16 19:15 Last Admin: 05/23/16 18:50 Dose: 999 mls/hr Cefazolin Sodium/Dextrose 2 gm (/ Premix) 50 mls @ 100 mls/hr IV Q8H [facility] Stop: 05/25/16 08:59 Last Admin: 05/25/16 08:46 Dose: 100 mls/hr Lactated Ringer's (Ringers, Lactated) Confirm Administered Dose 1,000 mls @ as directed .ROUTE .STK-MED ONE Stop: 05/24/16 10:43 Iodine (Iodine 2% Mild Tincture) Confirm Administered Dose 30 ml .ROUTE .STK- MED ONE Stop: 05/24/16 08:30 Lidocaine HCl (Lidocaine 1%) Confirm Administered Dose 4 ml .ROUTE .STK-MED ONE Stop: 05/24/16 08:33 Lorazepam (Ativan) 0.5 mg IV Q6H PRN PRN Reason: Anxiety Lorazepam (Ativan) 0.5 mg PO QID PRN PRN Reason: anxiety/insomnia Last Admin: 05/25/16 04:30 Dose: 0.5 mg Magnesium Hydroxide (Milk Of Magnesia) 30 ml PO BID PRN PRN Reason: Constipation Morphine Sulfate (Morphine) 1 mg IVPUSH Q2H PRN PRN Reason: Pain Naloxone HCl (Narcan) 0.1 mg IVPUSH Q5M PRN PRN Reason: oversedation Stop: 05/25/16 11:01 Propofol (Diprivan 20 Ml) Confirm Administered Dose 200 mg .ROUTE .STK-MED ONE Stop: 05/24/16 08:32 Propofol (Diprivan 20 Ml) Confirm Administered Dose 200 mg .ROUTE .STK-MED ONE Stop: 05/24/16 10:12 Tranexamic Acid (Cyklokapron) Confirm Administered Dose 1,000 mg .ROUTE .STK- MED ONE Stop: 05/24/16 08:30 - Exam Quality Assessment: Reports: DVT prophylaxis General: Reports: alert, cooperative, no acute distress HEENT: Reports: Pupils equal, Pupils reactive, EOMI, Mucous membr. moist/pink Neck: Reports: supple Lungs: Reports: Clear to auscultation, Normal respiratory effort Cardiovascular: Reports: regular rate, regular rhythm Abdomen: Reports: bowel sounds present, soft, no tenderness (Female) Exam: Deferred Rectal (Female) Exam: Deferred Back Exam: Reports: normal inspection Extremities: Reports: no edema, no calf tenderness Skin: Reports: warm, dry Wound/Incisions: Reports: dressing dry and intact, other (thigh soft) Neurological: Reports: other (pleasantly confused; baseline dementia) Psy/Mental Status: Reports: alert *Q Meaningful Use (DIS) - VTE *Q VTE Criteria *Q: - Stroke *Q Stroke Criteria *Q: - AMI *Q AMI Criteria *Q: <Belem Pandey - Last Filed: 05/30/16 16:02> Discharge Summary - Hospital Course Free Text/Narrative:: PT/OT, follow up as mentioned; DC to [facility] today. - Patient Summary/Data Consults: Consultations 05/23/16 11:20 Consult to Physician [CONS] Stat 05/23/16 13:32 Consult to Case Management [CONS] Routine Consult to Electric Meter Installer Helper [CONS] Routine OT Evaluation and Treatment [CONS] Routine PT Evaluation and Treatment [CONS] Routine 05/24/16 14:18 Consult to Billing Supervisor [CONS] Routine 05/25/16 11:52 Consult to Physician [CONS] Routine 05/25/16 14:19 Consult to Speech Language Pathology [INSTALL[employer]ORING Evaluation and Treatment] [CONS] Routine - Patient Data Vitals - Most Recent: Last Vital Signs Temp 36.7 C 05/26/16 08:29 Pulse 88 05/26/16 08:29 Resp 15 05/26/16 08:29 BP 138/75 05/26/16 08:29 Pulse Ox 93 L 05/26/16 08:29 Med Orders - Current: Current Medications Discontinued Medications Acetaminophen (Tylenol) 650 mg PO Q4H PRN PRN Reason: Pain (Mild 1-3)/fever Last Admin: 05/25/16 06:35 Dose: 650 mg Acetaminophen/Hydrocodone Bitart (Windsor 325-5 Mg) 1 tab PO Q4H PRN PRN Reason: Pain (moderate 4-6) Last Admin: 05/24/16 03:47 Dose: 1 tab Acetaminophen/Hydrocodone Bitart (Windsor 325-5 Mg) 1 - 2 tab PO Q4H PRN PRN Reason: Pain Last Admin: 05/26/16 05:58 Dose: 2 tab Albuterol (Proventil Neb Soln) 2.5 mg NEB Q2H PRN PRN Reason: Shortness Of Breath/wheezing Benztropine Mesylate (Cogentin) 0.5 mg PO Q48H [facility] Last Admin: 05/25/16 08:46 Dose: 0.5 mg Bisacodyl (Dulcolax) 5 mg PO DAILY PRN PRN Reason: Constipation Last Admin: 05/25/16 18:43 Dose: 5 mg Bupivacaine HCl (Marcaine 0.25%) Confirm Administered Dose 30 ml .ROUTE .STK- MED ONE Stop: 05/24/16 08:30 Last Admin: 05/24/16 10:28 Dose: 20 ml Carbidopa/Levodopa (Sinemet 25-100 Mg) 1 tab PO QID [facility] Last Admin: 05/26/16 09:29 Dose: Not Given Cefazolin Sodium (Ancef) Confirm Administered Dose 2 gm .ROUTE .STK-MED ONE Stop: 05/24/16 08:30 Cefazolin Sodium (Ancef) Confirm Administered Dose 1 gm .ROUTE .STK-MED ONE Stop: 05/24/16 08:30 Morphine Sulfate 8 mg/Epinephrine HCl 0.3 mg/Cefuroxime Sodium 750 mg/Ketorolac Tromethamine 30 mg/Sodium Chloride 27.9 ml 0 mg .XX ONETIME ONE Stop: 05/24/16 08:44 Last Admin: 05/24/16 20:16 Dose: Not Given Docusate Sodium (Colace) 100 mg PO BID PRN PRN Reason: Constipation Enoxaparin Sodium (Lovenox) 30 mg SUBCUT Q12HR [facility] Last Admin: 05/26/16 09:29 Dose: Not Given Ephedrine Sulfate (Ephedrine In Ns) Confirm Administered Dose 25 [address] .[facility]- MED ONE Stop: 05/24/16 09:59 Famotidine (Pepcid) 20 mg PO Q12H [facility] Last Admin: 05/24/16 20:16 Dose: Not Given Famotidine (Pepcid) 20 mg PO DAILY [facility] Last Admin: 05/26/16 09:29 Dose: Not Given Fentanyl (Sublimaze) Confirm Administered Dose 100 mcg .ROUTE .STK-MED ONE Stop: 05/24/16 08:32 Hydromorphone HCl (Dilaudid) 0.5 mg IVPUSH ONETIME ONE Stop: 05/23/16 09:49 Last Admin: 05/23/16 09:51 Dose: 0.5 mg Hydromorphone HCl (Dilaudid) 0.5 mg IVPUSH ONETIME ONE Stop: 05/23/16 11:01 Last Admin: 05/23/16 11:04 Dose: 0.5 mg Hydromorphone HCl (Dilaudid) 0.25 mg IVPUSH Q4H PRN PRN Reason: Pain Last Admin: 05/24/16 14:53 Dose: 0.25 mg Hydromorphone HCl (Dilaudid) 0.25 mg IVPUSH Q4H PRN PRN Reason: Pain (severe 7-10) Stop: 05/27/16 23:59 Sodium Chloride (Normal Saline) 1,000 mls @ 75 mls/hr IV ASDIRECTED [facility] Last Admin: 05/24/16 03:47 Dose: 75 mls/hr Promethazine HCl 12.5 mg/ (Sodium Chloride) 50.5 mls @ 100 mls/hr IV Q6H PRN PRN Reason: Nausea/Vomiting Sodium Chloride (Normal Saline) 500 mls @ 999 mls/hr IV ONETIME ONE Stop: 05/23/16 19:15 Last Admin: 05/23/16 18:50 Dose: 999 mls/hr Cefazolin Sodium/Dextrose 2 gm (/ Premix) 50 mls @ 100 mls/hr IV Q8H [facility] Stop: 05/25/16 08:59 Last Admin: 05/25/16 08:46 Dose: 100 mls/hr Lactated Ringer's (Ringers, Lactated) Confirm Administered Dose 1,000 mls @ as directed .ROUTE .STK-MED ONE Stop: 05/24/16 10:43 Iodine (Iodine 2% Mild Tincture) Confirm Administered Dose 30 ml .ROUTE .STK- MED ONE Stop: 05/24/16 08:30 Levothyroxine Sodium (Synthroid) 50 mcg PO ACBREAKFAST [facility] Last Admin: 05/26/16 05:58 Dose: 50 mcg Lidocaine HCl (Lidocaine 1%) Confirm Administered Dose 4 ml .ROUTE .STK-MED ONE Stop: 05/24/16 08:33 Lorazepam (Ativan) 0.5 mg IV Q6H PRN PRN Reason: Anxiety Lorazepam (Ativan) 0.5 mg PO QID PRN PRN Reason: anxiety/insomnia Last Admin: 05/25/16 04:30 Dose: 0.5 mg Lorazepam (Ativan) 0.5 mg PO TID [facility] Last Admin: 05/26/16 09:29 Dose: Not Given Magnesium Hydroxide (Milk Of Magnesia) 30 ml PO BID PRN PRN Reason: Constipation Magnesium Oxide (Magnesium Oxide) 400 mg PO BID [facility] Last Admin: 05/26/16 09:29 Dose: Not Given Morphine Sulfate (Morphine) 1 mg IVPUSH Q2H PRN PRN Reason: Pain Multivitamins (Thera) 1 each PO DAILY [facility] Last Admin: 05/26/16 09:30 Dose: Not Given Naloxone HCl (Narcan) 0.1 mg IVPUSH Q5M PRN PRN Reason: oversedation Stop: 05/25/16 11:01 Ondansetron HCl (Zofran) 4 mg IV Q6H PRN PRN Reason: Nausea/Vomiting Polyethylene Glycol (Miralax) 17 gm PO DAILY PRN PRN Reason: Constipation Last Admin: 05/26/16 06:00 Dose: 17 gm Potassium Chloride (Klor-Con M20) 20 meq PO BID [facility] Last Admin: 05/26/16 09:29 Dose: Not Given Propofol (Diprivan 20 Ml) Confirm Administered Dose 200 mg .ROUTE .STK-MED ONE Stop: 05/24/16 08:32 Propofol (Diprivan 20 Ml) Confirm Administered Dose 200 mg .ROUTE .[employer] ONE Stop: 05/24/16 10:12 Ropinirole HCl (Requip) 0.25 mg PO BID [facility] Last Admin: 05/26/16 09:29 Dose: Not Given Senna (Senna) 8.6 mg PO BID PRN PRN Reason: Constipation Last Admin: 05/25/16 18:44 Dose: 8.6 mg Senna/Docusate Sodium (Senna Plus) 1 tab PO BID PRN PRN Reason: Constipation Last Admin: 05/26/16 05:58 Dose: 1 tab Sodium Chloride (Saline Flush) 10 ml FLUSH ASDIRECTED PRN PRN Reason: Keep Vein Open Last Admin: 05/23/16 09:52 Dose: 10 ml Tranexamic Acid (Cyklokapron) Confirm Administered Dose 1,000 mg .ROUTE .[facility] [employer]- MED ONE Stop: 05/24/16 08:30 *Q Meaningful Use (DIS) - VTE *Q VTE Criteria *Q: - Stroke *Q Stroke Criteria *Q: - AMI *Q AMI Criteria *Q:
--- NOTE | 2016-05-29 16:48 | PCM.SURGPN ---
- General Info Date of Service: 05/26/16 POD#: 2 Functional Status: Reports: pain controlled, tolerating diet, ambulating. Denies: new symptoms (The pt voiced no complaints.) - Patient Data Vitals - most recent: Last Vital Signs Temp 98.1 F 05/26/16 08:29 Pulse 88 05/26/16 08:29 Resp 15 05/26/16 08:29 BP 138/75 05/26/16 08:29 Pulse Ox 93 L 05/26/16 08:29 Weight - most recent: 87 lb 12.8 oz Med Orders - Current: Current Medications Discontinued Medications Acetaminophen (Tylenol) 650 mg PO Q4H PRN PRN Reason: Pain (Mild 1-3)/fever Last Admin: 05/25/16 06:35 Dose: 650 mg Acetaminophen/Hydrocodone Bitart ([place] 325-5 Mg) 1 tab PO Q4H PRN PRN Reason: Pain (moderate 4-6) Last Admin: 05/24/16 03:47 Dose: 1 tab Acetaminophen/Hydrocodone Bitart ([place] 325-5 Mg) 1 - 2 tab PO Q4H PRN PRN Reason: Pain Last Admin: 05/26/16 05:58 Dose: 2 tab Albuterol (Proventil Neb Soln) 2.5 mg NEB Q2H PRN PRN Reason: Shortness Of Breath/wheezing Benztropine Mesylate (Cogentin) 0.5 mg PO Q48H LU Last Admin: 05/25/16 08:46 Dose: 0.5 mg Bisacodyl (Dulcolax) 5 mg PO DAILY PRN PRN Reason: Constipation Last Admin: 05/25/16 18:43 Dose: 5 mg Bupivacaine HCl (Marcaine 0.25%) Confirm Administered Dose 30 ml .ROUTE .STK- MED ONE Stop: 05/24/16 08:30 Last Admin: 05/24/16 10:28 Dose: 20 ml Carbidopa/Levodopa (Sinemet 25-100 Mg) 1 tab PO QID LU Last Admin: 05/26/16 09:29 Dose: Not Given Cefazolin Sodium (Ancef) Confirm Administered Dose 2 gm .ROUTE .STK-MED ONE Stop: 05/24/16 08:30 Cefazolin Sodium (Ancef) Confirm Administered Dose 1 gm .ROUTE .STK-MED ONE Stop: 05/24/16 08:30 Morphine Sulfate 8 mg/Epinephrine HCl 0.3 mg/Cefuroxime Sodium 750 mg/Ketorolac Tromethamine 30 mg/Sodium Chloride 27.9 ml 0 mg .XX ONETIME ONE Stop: 05/24/16 08:44 Last Admin: 05/24/16 20:16 Dose: Not Given Docusate Sodium (Colace) 100 mg PO BID PRN PRN Reason: Constipation Enoxaparin Sodium (Lovenox) 30 mg SUBCUT Q12HR [facility] Last Admin: 05/26/16 09:29 Dose: Not Given Ephedrine Sulfate (Ephedrine In Ns) Confirm Administered Dose 25 mg .ROUTE .STK- MED ONE Stop: 05/24/16 09:59 Famotidine (Pepcid) 20 mg PO Q12H [facility] Last Admin: 05/24/16 20:16 Dose: Not Given Famotidine (Pepcid) 20 mg PO DAILY [facility] Last Admin: 05/26/16 09:29 Dose: Not Given Fentanyl (Sublimaze) Confirm Administered Dose 100 mcg .ROUTE .STK-MED ONE Stop: 05/24/16 08:32 Hydromorphone HCl (Dilaudid) 0.5 mg IVPUSH ONETIME ONE Stop: 05/23/16 09:49 Last Admin: 05/23/16 09:51 Dose: 0.5 mg Hydromorphone HCl (Dilaudid) 0.5 mg IVPUSH ONETIME ONE Stop: 05/23/16 11:01 Last Admin: 05/23/16 11:04 Dose: 0.5 mg Hydromorphone HCl (Dilaudid) 0.25 mg IVPUSH Q4H PRN PRN Reason: Pain Last Admin: 05/24/16 14:53 Dose: 0.25 mg Hydromorphone HCl (Dilaudid) 0.25 mg IVPUSH Q4H PRN PRN Reason: Pain (severe 7-10) Stop: 05/27/16 23:59 Sodium Chloride (Normal Saline) 1,000 mls @ 75 mls/hr IV ASDIRECTED [facility] Last Admin: 05/24/16 03:47 Dose: 75 mls/hr Promethazine HCl 12.5 mg/ (Sodium Chloride) 50.5 mls @ 100 mls/hr IV Q6H PRN PRN Reason: Nausea/Vomiting Sodium Chloride (Normal Saline) 500 mls @ 999 mls/hr IV ONETIME ONE Stop: 05/23/16 19:15 Last Admin: 05/23/16 18:50 Dose: 999 mls/hr Cefazolin Sodium/Dextrose 2 gm (/ Premix) 50 mls @ 100 mls/hr IV Q8H [facility] Stop: 05/25/16 08:59 Last Admin: 05/25/16 08:46 Dose: 100 mls/hr Lactated Ringer's (Ringers, Lactated) Confirm Administered Dose 1,000 mls @ as directed .ROUTE .STK-MED ONE Stop: 05/24/16 10:43 Iodine (Iodine 2% Mild Tincture) Confirm Administered Dose 30 ml .ROUTE .STK- MED ONE Stop: 05/24/16 08:30 Levothyroxine Sodium (Synthroid) 50 mcg PO ACBREAKFAST [facility] Last Admin: 05/26/16 05:58 Dose: 50 mcg Lidocaine HCl (Lidocaine 1%) Confirm Administered Dose 4 ml .ROUTE .STK-MED ONE Stop: 05/24/16 08:33 Lorazepam (Ativan) 0.5 mg IV Q6H PRN PRN Reason: Anxiety Lorazepam (Ativan) 0.5 mg PO QID PRN PRN Reason: anxiety/insomnia Last Admin: 05/25/16 04:30 Dose: 0.5 mg Lorazepam (Ativan) 0.5 mg PO TID [facility] Last Admin: 05/26/16 09:29 Dose: Not Given Magnesium Hydroxide (Milk Of Magnesia) 30 ml PO BID PRN PRN Reason: Constipation Magnesium Oxide (Magnesium Oxide) 400 mg PO BID [facility] Last Admin: 05/26/16 09:29 Dose: Not Given Morphine Sulfate (Morphine) 1 mg IVPUSH Q2H PRN PRN Reason: Pain Multivitamins (Thera) 1 each PO DAILY [facility] Last Admin: 05/26/16 09:30 Dose: Not Given Naloxone HCl (Narcan) 0.1 mg IVPUSH Q5M PRN PRN Reason: oversedation Stop: 05/25/16 11:01 Ondansetron HCl (Zofran) 4 mg IV Q6H PRN PRN Reason: Nausea/Vomiting Polyethylene Glycol (Miralax) 17 gm PO DAILY PRN PRN Reason: Constipation Last Admin: 05/26/16 06:00 Dose: 17 gm Potassium Chloride (Klor-Con M20) 20 meq PO BID [facility] Last Admin: 05/26/16 09:29 Dose: Not Given Propofol (Diprivan 20 Ml) Confirm Administered Dose 200 mg .ROUTE .STK-MED ONE Stop: 05/24/16 08:32 Propofol (Diprivan 20 Ml) Confirm Administered Dose 200 mg .ROUTE .STK-MED ONE Stop: 05/24/16 10:12 Ropinirole HCl (Requip) 0.25 mg PO BID [facility] Last Admin: 05/26/16 09:29 Dose: Not Given Senna (Senna) 8.6 mg PO BID PRN PRN Reason: Constipation Last Admin: 05/25/16 18:44 Dose: 8.6 mg Senna/Docusate Sodium (Senna Plus) 1 tab PO BID PRN PRN Reason: Constipation Last Admin: 05/26/16 05:58 Dose: 1 tab Sodium Chloride (Saline Flush) 10 ml FLUSH ASDIRECTED PRN PRN Reason: Keep Vein Open Last Admin: 05/23/16 09:52 Dose: 10 ml Tranexamic Acid (Cyklokapron) Confirm Administered Dose 1,000 mg .ROUTE .STK- MED ONE Stop: 05/24/16 08:30 - Exam Wound/Incisions: dressing dry and intact General: cooperative, no acute distress Lungs: Normal respiratory effort Extremities: normal pulses, no calf tenderness, other (Right thigh soft, nontender.) - Problem List Review Problem List Initiated/Reviewed/Updated: Yes - Assessment Assessment (Free Text/Narrative):: POD#2 - cephalomedullary nail placement for right intertrochanteric hip fracture - Plan Plan (Free Text/Narrative):: 1. WBAT. Continue with P.T. and O.T. 2. Discharge to ID today. 3. VTE prophylaxis x 35 days total. 4. f/u at ortho clinic next week= 5. Further orders per Hospitalist service. The pt's case was discussed with Dr. Graham today.
== END 2016-05-26 11:03 | DRG 482 ==
LOC: JD.ED 09:32 → JD.MS 11:19 → JD.ICU 11:19 → JD.MS 05-25 13:18
PROVIDERS: ADMIT Internal Medicine; ATTEND Internal Medicine
PROC: 0QH606Z Insertion of Intramedullary Internal Fixation Device into Right Upper Femur, Open Approach (ICD-10-PCS; principal; 2016-05-23)
DX: S72.141A Displaced intertrochanteric fracture of right femur, initial encounter for closed fracture (principal); W19.XXXA Unspecified fall, initial encounter; Y92.002 Bathroom of unspecified non-institutional (private) residence as the place of occurrence of the external cause; I10 Essential (primary) hypertension; E78.5 Hyperlipidemia, unspecified; E78.00 Pure hypercholesterolemia, unspecified; G20 Parkinson's disease; F02.80 Dementia in other diseases classified elsewhere, unspecified severity, without behavioral disturbance, psychotic disturbance, mood disturbance, and anxiety; E03.9 Hypothyroidism, unspecified; Z79.899 Other long term (current) drug therapy; Z87.891 Personal history of nicotine dependence
CPT/HCPCS: 36415; 51702; 71010; 72170; 73502; 80053; 81001; 84484; 85025; 87086; 93005; 96361; 96374; 96376; 99285; J1170 ×2; J7040; J7050; 01230; 73501-26-RT; 73501-RT; 76000; 76000-26; 80048; 83735; 87641; 92610-GN; 97162-GP; 97166-GO; 97530-GO; 97530-GP; A9270-GY; C1713; C1776; J0690; J1650; J2704; J3010; J3490; J7120

== ENCOUNTER 2017-02-28 11:00 | Emergency (ER) | payer MEDICARE, OTHER ==
[2017-02-28 11:24] VITALS: BP 121/76
--- NOTE | 2017-02-28 13:12 | CR ---
Pelvis and left hip: AP view of the pelvis was obtained as well as AP and lateral views of the left hip. Compression screw and short intramedullary art is seen within the right hip. Compression screw appears to be changed in position with tip of the cannulated screw now seen past the femoral head. Joint space within the left hip is maintained. Osteopenia is seen. No acute fracture is noted. Slight degenerative change is partially seen within the lumbar spine. Impression: 1. Tip of compression screw lies past the femoral head within the right hip which is an interval change from prior study. 2. Other incidental findings. Nothing acute is appreciated on AP pelvis or on two-view left hip exam. Diagnostic code #3
--- NOTE | 2017-02-28 13:36 | CT ---
CT pelvis Technique: Multiple axial sections were obtained from slightly below the iliac crests inferiorly through both hips. Reconstructed coronal and sagittal images were obtained. Findings: Slight deformity is seen within the inferior left pubic ramus suspicious for a nondisplaced fracture. No additional fracture is appreciated. There is protrusion of a cannulated screw through the right femoral head into the acetabulum. Vacuum disc phenomena is seen within the L4-L5 and L5-S1 disks. L5-S1 disc shows moderate narrowing. Impression: 1. Findings suspicious for nondisplaced fracture within the inferior left pubic ramus. 2. Tip of cannulated screw protrudes through the femoral head into the acetabulum within the right hip. 3. Incidental degenerative change within the spine. Diagnostic code #3
--- NOTE | 2017-02-28 15:17 | EDM.PDOC ---
ED HPI GENERAL MEDICAL PROBLEM - General Chief Complaint: Lower Extremity Injury/Pain Stated Complaint: FALL HIP AND ARM INJURY Time Seen by Provider: 02/28/17 11:54 Source of Information: Reports: Patient, Family, Skilled Nursing Records History Limitations: Reports: No Limitations - History of Present Illness INITIAL COMMENTS - FREE TEXT/NARRATIVE: The patient presents with left hip and pelvic pain. The patient is a resident at [facility]. She got up to use the bathroom and she fell and hurt her left hip or pelvis. She is supposed to get help and use the walker. She has no cough, congestion, fever, chills, chest pain, abdominal pain, nausea or vomiting. She does not think she hit her head. Onset: Sudden Duration: Hour(s): (1:30am) Location: Reports: Pelvis (and left hip) Quality: Reports: Sharp Severity: Moderate Improves with: Reports: None Worsens with: Reports: Movement Context: Reports: Trauma (Fall) Associated Symptoms: Reports: No Other Symptoms Treatments GLUING MACHINE OPERATOR: Reports: Other (see below) Other Treatments GLUING MACHINE OPERATOR: tylenol and ativan Left Groin Pain Score (Numeric/FACES): 6 - Related Data Allergies Allergy/AdvReac Type Severity Reaction Status Date / Time No Known Allergies Allergy Verified 05/23/16 09:42 Home Meds: Home Meds Carbidopa/Levodopa [Sinemet 25-100 mg Tablet] 25 - 100 tab PO Q8H 05/23/16 [ History] Levothyroxine [Synthroid] 50 mcg PO ACBREAKFAST 05/23/16 [History] rOPINIRole HCl [Requip] 0.25 mg PO BID 05/23/16 [History] Acetaminophen [Tylenol] 650 mg PO Q4H PRN #0 tablet 05/26/16 [Rx] Bisacodyl [Dulcolax] 5 mg PO DAILY PRN #0 tablet 05/26/16 [Rx] Famotidine [Pepcid] 20 mg PO DAILY tablet 05/26/16 [Rx] Sennosides [Senna] 8.6 mg PO BID PRN #0 tablet 05/26/16 [Rx] Acetaminophen/HYDROcodone [[place] 325-5 MG] 1 - 2 tab PO Q8H PRN 02/28/17 [ History] Docusate Sodium/Sennosides [Senna Plus] 1 tab PO ASDIRECTED 02/28/17 [History] Estradiol [Estrace 0.01% Vaginal Crm] 1 applic TOP TUTHSA 02/28/17 [History] LORazepam [Ativan] 1 mg PO QID 02/28/17 [History] Losartan [Cozaar] 100 mg PO DAILY 02/28/17 [History] Methyl Salicylate/Menthol [Salonpas Patch] 1 patch TOP BID 02/28/17 [History] Vitamin B Complex 1 tab PO DAILY 02/28/17 [History] amLODIPine [Norvasc] 5 mg PO DAILY 02/28/17 [History] Past Medical History - Past Health History Medical/Surgical History: Denies Medical/Surgical History HEENT History: Reports: Impaired Vision Cardiovascular History: Reports: High Cholesterol, Hypertension Neurological History: Reports: Parkinson's Psychiatric History: Reports: Dementia Endocrine/Metabolic History: Reports: Hypothyroidism - Past Surgical History Endocrine Surgical History: Reports: None Neurological Surgical History: Reports: None Social & Family History - Tobacco Use Smoking Status *Q: Never Smoker Years of Tobacco use: 5 Used Tobacco, but Quit: Yes Month Tobacco Last Used: numerous years ago Second Hand Smoke Exposure: No - Caffeine Use Caffeine Use: Reports: None - Alcohol Use Days Per Week of Alcohol Use: 0 - Recreational Drug Use Recreational Drug Use: No Review of Systems - Review of Systems Review Of Systems: See Below Constitutional: Reports: No Symptoms Eyes: Reports: No Symptoms Ears: Reports: No Symptoms Nose: Reports: No Symptoms Mouth/Throat: Reports: No Symptoms Respiratory: Reports: No Symptoms Cardiovascular: Reports: No Symptoms GI/Abdominal: Reports: No Symptoms Genitourinary: Reports: No Symptoms Musculoskeletal: Reports: Other (Left hip and pelvis pain) ED EXAM, GENERAL - Physical Exam Exam: See Below Exam Limited By: No Limitations General Appearance: Alert, No Apparent Distress Ears: Normal External Exam Nose: Normal Inspection Head: Atraumatic, Normocephalic Neck: Normal Inspection Respiratory/Chest: No Respiratory Distress, Lungs Clear, Normal Breath Sounds Cardiovascular: Regular Rate, Rhythm, No Edema, No Murmur GI/Abdominal: Soft, Non-Tender, No Organomegaly, No Mass Back Exam: Normal Inspection Extremities: Other (Pain upon palpation to the left hip and pelvis) Neurological: Alert, Oriented, No Motor/Sensory Deficits Course - Vital Signs Last Recorded V/S: Last Vital Signs Temp 97.7 F 02/28/17 11:23 Pulse 84 02/28/17 11:23 Resp 20 02/28/17 11:23 BP 121/76 02/28/17 11:23 Pulse Ox 99 02/28/17 11:23 - Re-Assessments/Exams Free Text/Narrative Re-Assessment/Exam: 02/28/17 15:14 I ordered an x-ray of her left hip and pelvis. Her hip seems fine but I suspect a left inferior ramus fracture. I ordered a CT of her pelvis and it showed findings suspicious for nondisplaced fracture within the inferior left pubic ramus. Tip of cannulated screw protrudes through the femoral head into the acetabulum within the right hip. The patient does have pain at times to the right hip. She had surgery last year. I called Dr Ornelas the orthopedic surgeon masonry supervisor. He said there is nothing surgical to be done. She will need weight bearing restrictions and PT. He would like to see her next week. Departure - Departure Time of Disposition: 15:17 Disposition: Home, Self-Care 01 Condition: Good Clinical Impression: Fall Qualifiers: Encounter type: initial encounter Qualified Code(s): W19.XXXA - Unspecified fall, initial encounter Inferior pubic ramus fracture Qualifiers: Encounter type: initial encounter Fracture type: closed Laterality: left Qualified Code(s): S32.592A - Other specified fracture of left pubis, initial encounter for closed fracture - Discharge Information Referrals: Dwight Bush MD [Primary Care Provider] - Parminder Ornelas MD [Physician] - 1 Week Additional Instructions: Take tylenol for the pain. Use your walker at all times. Follow up with Dr Ornelas in 1 week. Please return if you are worse.
== END 2017-02-28 15:25 | disposition home or self-care (01) ==
LOC: JD.ED 11:00
DX: S32.592A Other specified fracture of left pubis, initial encounter for closed fracture (principal); I10 Essential (primary) hypertension; Z79.899 Other long term (current) drug therapy; W19.XXXA Unspecified fall, initial encounter
CPT/HCPCS: 72192; 72192-26; 73502-26-LT; 73502-LT; 99283; 99285-25